=== PATIENT | female | born 1990 | race Caucasian/White ===

== ENCOUNTER 2017-11-25 15:28 | Emergency (ER) | payer MEDICAID, SELFPAY | END 2017-11-25 16:09 | disposition home or self-care (01) | PROVIDERS: Emergency Provider Nurse Practitioner Family; Visit Provider Nurse Practitioner Family | DX: J10.1 Influenza due to other identified influenza virus with other respiratory manifestations (principal); Z20.828 Contact with and (suspected) exposure to other viral communicable diseases; F17.210 Nicotine dependence, cigarettes, uncomplicated; Z88.2 Allergy status to sulfonamides | CPT/HCPCS: 87804; 87880; 99201 ==

== ENCOUNTER 2020-10-20 19:44 | Emergency (ER) | payer MEDICAID, SELFPAY ==
[2020-10-20 20:10] VITALS: BP 106/73; PULSE 77; RESP 20; TEMP 36.1; O2SAT 99; BMI 24.5
--- NOTE | 2020-10-20 20:27 | HMH.EDUTC ---
[facility] – [place] Disposition Clinical Impression: Exposure to COVID-19 virus Disposition: Home, Self-Care Condition on Discharge: Good Instructions: Preventing the Spread of Coronavirus Discharge Instructions Additional Instructions: Drink plenty of fluids. Take tylenol for pain or fever. Return if you begin to have difficulty breathing. Follow up with your regular doctor. GO TO THE ER FOR ANY WORSENING SYMPTOMS Referrals: Tommy Alexandre MD [Primary Care Provider] - Time of Disposition: 20:27 Medical Decision Making - Medical Records Medical records reviewed: No: I reviewed the patient's medical records. - Thomas Inquiry Pt receiving controlled substance: No Vital Signs: 10/20/20 20:10 Temperature 97.0 F L Temperature Source Oral Pulse Rate [Right Brachial] 77 Respiratory Rate 20 Blood Pressure [Right Arm] 106/73 L Blood Pressure Mean [Right Arm] 84 Blood Pressure Source [Right Arm] Automatic Cuff Blood Pressure Position [Right Arm] Sitting 02 Sat by Pulse Oximetry 99 Oxygen Delivery Method Room Air Orders (Tests/Meds): ORDERS Category Date Time Status Covid-19 Nasal PCR Sendout [place] [facility] 10/20/20 20:37 Ordered [facility] [place] HPI - General Stated complaint: COVID EXPOSURE Time Seen by Provider: 10/20/20 20:27 - History of Present Illness Provider Complaint: She was exposed to covid by her mother having it. She denies any symptoms. - Related Data Previous Rx's Medication Instructions Recorded norgestimate-ethinyl estradiol 1 tab PO DAILY #28 tab 06/09/19 0.18 mg/0.215mg/0.25mg-35 mcg(28)tablet Allergies Allergy/AdvReac Type Severity Reaction Status Date / Time Sulfa (Sulfonamide Allergy Unknown Verified 06/09/19 08:19 Antibiotics) [SULFA (SULFONAMIDE ANTIBIOTICS)] [facility] History - Hepatitis A Screen Attestation statement:: This patient has been screened for Hepatitis A risk factors. I have reviewed the patient's past medical history: Yes Other Medical History: Reports: Other Comment: Endometiriosis Other Surgeries: Yes: Hernia Repair, Other Amputation: No Fractures: No Comment: 1994-hernia repair. 2009-Kidney Stones/stint. 2014-LSC. 2015-D&E (twins) - Social History Smoking Status: Current every day smoker Tobacco Type: cigarettes # Packs/Day (cigarettes): 1 Alcohol Intake: never Substance Use Type: denies use Occupational Status: employed Housing: house Household Members: children Family Hx:: Cancer, Hypertension ROS Obtained: Yes All systems reviewed & no additional complaints - Constitutional Constitutional: Reports system reviewed and no additional complaints, except as docu - Eyes Eyes: Reports system reviewed and no additional complaints, except as docu - ENT Ears, Nose, Mouth, and Throat: Reports system reviewed and no additional complaints, except as docu - Cardiovascular Cardiovascular: Reports system reviewed and no additional complaints, except as docu - Respiratory Respiratory: Yes system reviewed and no additional complaints, except as docu - Gastrointestinal Gastrointestingal: Reports: system reviewed and no additional complaints, except as docu Physical Exam - General General appearance: alert, in no apparent distress - Head Head exam: atraumatic, normocephalic, normal inspection - Eye Eye exam: Present: normal appearance, PERRL, EOMI - ENT ENT exam: Present: normal exam, normal oropharynx, mucous membranes moist, TM's normal bilaterally, normal external ear exam - Neck Neck exam: Present: normal inspection, full ROM, trachea midline. Absent: meningismus, lymphadenopathy - Chest Chest inspection: Present: normal inspection, symmetric chest wall rise. Absent: tenderness - Respiratory Respiratory exam: Present: normal lung sounds bilaterally. Absent: respiratory distress - Cardiovascular Cardiovascular exam: Present: regular rate, normal rhythm. Absent: JVD - Abdominal Exam Abd
[2020-10-20 20:35] VITALS: BP 106/73; PULSE 77; RESP 20; TEMP 36.1; O2SAT 99
[2020-10-22 13:35] LABS: Covid-19 Nasal PCR Sendout Lex Not Detected
== END 2020-10-20 20:40 | disposition home or self-care (01) ==
PROVIDERS: Emergency Provider Nurse Practitioner Family; PCP Emergency Medicine
DX: Z20.828 Contact with and (suspected) exposure to other viral communicable diseases (principal); Z88.2 Allergy status to sulfonamides; F17.210 Nicotine dependence, cigarettes, uncomplicated
CPT/HCPCS: 99201; U0004

== ENCOUNTER 2021-01-31 13:10 | Emergency (ER) | payer MEDICAID, SELFPAY ==
[2021-01-31 13:20] VITALS: BP 121/77; PULSE 91; RESP 19; TEMP 36.8; O2SAT 98; BMI 25.4
--- NOTE | 2021-01-31 13:32 | HMH.EDUTC ---
[facility] [place] Clinical Impression: Nausea and vomiting Qualifiers: Vomiting type: unspecified Vomiting Intractability: non-intractable Qualified Code(s): R11.2 - Nausea with vomiting, unspecified Disposition: Home, Self-Care Condition on Discharge: Good Instructions: DI for Viral Gastroenteritis -- Adult Prescriptions: Ondansetron [Ondansetron Odt 8mg Tab] 8 mg PO TID PRN 10 Days #30 tab PRN Reason: Nausea Transmission Status: Pending to [facility] Referrals: Tommy Alexandre MD [Primary Care Provider] - Time of Disposition: 13:38 Medical Decision Making - Thomas Inquiry Pt receiving controlled substance: No [facility] [place] HPI - General Stated complaint: nausea, vomiting Time Seen by Provider: 01/31/21 13:32 - History of Present Illness Provider Complaint: Sent home from work yesterday with a fever. Had nausea, vomiting and diarrhea. Diarrhea has stopped. Still some nausea and vomiting. No fever. All kids had the same last week. Onset (ago): day(s) (1) Location: abdomen Relieving factors: none Exacerbating factors: none Associated symptoms: fever/chills, nausea/vomiting Treatments prior to arrival: none - Related Data Home Medications Medication Instructions Recorded Confirmed Sertraline HCl [Zoloft] 100 mg PO DAILY 01/31/21 01/31/21 Previous Rx's Medication Instructions Recorded Ondansetron [Ondansetron Odt 8mg 8 mg PO TID PRN 10 Days #30 tab 01/31/21 Tab] Allergies Allergy/AdvReac Type Severity Reaction Status Date / Time Sulfa (Sulfonamide Allergy Unknown Verified 06/09/19 08:19 Antibiotics) [SULFA (SULFONAMIDE ANTIBIOTICS)] [facility] History - Hepatitis A Screen Attestation statement:: This patient has been screened for Hepatitis A risk factors. I have reviewed the patient's past medical history: Yes Other Medical History: Reports: Other Comment: Endometiriosis Other Surgeries: Yes: Hernia Repair, Other Amputation: No Fractures: No Comment: 1994-hernia repair. 2009-Kidney Stones/stint. 2014-LSC. 2015-D&E (twins) - Social History Smoking Status: Current every day smoker Tobacco Type: cigarettes # Packs/Day (cigarettes): 1 Alcohol Intake: never Substance Use Type: denies use Occupational Status: other Housing: house Household Members: children Family Hx:: Cancer, Hypertension ROS Obtained: Yes All systems reviewed & no additional complaints - Constitutional Constitutional: Reports fever(s) - Gastrointestinal Gastrointestingal: Reports: loose stools, nausea, vomiting Physical Exam - General General appearance: alert, in no apparent distress - Head Head exam: atraumatic, normocephalic, normal inspection - Eye Eye exam: Present: normal appearance, PERRL, EOMI - ENT ENT exam: Present: normal exam, normal oropharynx, mucous membranes moist, TM's normal bilaterally, normal external ear exam - Neck Neck exam: Present: normal inspection, full ROM, trachea midline. Absent: meningismus, lymphadenopathy - Chest Chest inspection: Present: normal inspection, symmetric chest wall rise. Absent: tenderness - Respiratory Respiratory exam: Present: normal lung sounds bilaterally. Absent: respiratory distress - Cardiovascular Cardiovascular exam: Present: regular rate, normal rhythm. Absent: JVD - Abdominal Exam Abdominal exam: Present: soft, normal bowel sounds. Absent: distention, tenderness, guarding - Extremities Exam Extremities exam: Present: normal inspection, full ROM, normal capillary refill. Absent: calf tenderness - Back Exam Back exam: Present: normal inspection. Absent: tenderness - Neurological Exam Neurological exam: Present: alert, oriented X3 - Psychiatric Psychiatric exam: Present: normal affect, normal mood - Skin Skin exam: Present: warm, dry, intact, normal color - Lymphatic Lymphatic Findings: no adenopathy
[2021-01-31 13:48] VITALS: BP 121/77; PULSE 91; RESP 19; TEMP 36.8; O2SAT 98
== END 2021-01-31 13:50 | disposition home or self-care (01) ==
PROVIDERS: Emergency Provider Physician Assistant; PCP Emergency Medicine
DX: R11.2 Nausea with vomiting, unspecified (principal); R19.7 Diarrhea, unspecified; F17.210 Nicotine dependence, cigarettes, uncomplicated; Z88.2 Allergy status to sulfonamides
CPT/HCPCS: 99202; G0463

== ENCOUNTER 2021-03-31 10:05 | Emergency (ER) | payer MEDICAID, SELFPAY ==
--- NOTE | 2021-03-31 10:47 | HMH.EDUTC ---
[facility] – [place] Disposition Clinical Impression: Exposure to COVID-19 virus Pharyngitis Qualifiers: Pharyngitis/tonsillitis etiology: unspecified etiology Qualified Code(s): J02.9 - Acute pharyngitis, unspecified Disposition: Home, Self-Care Condition on Discharge: Good Instructions: DI for Pharyngitis/Tonsillopharyngitis -- Adult, Preventing the Spread of Coronavirus Discharge Instructions Additional Instructions: Drink plenty of fluids. Take tylenol or ibuprofen for pain or fever. Take the medications as directed. Follow up with your regular doctor. GO TO THE ER FOR ANY WORSENING SYMPTOMS Prescriptions: Ondansetron [Zofran 4mg ODT] 4 mg PO Q8HP PRN #12 tab.rapdis PRN Reason: Nausea Transmission Status: Received by [facility] Azithromycin [Z-Magen 250mg Tab*] 250 mg PO UD DOSE PK #6 tab Transmission Status: Received by [facility] Referrals: Tommy Alexandre MD [Primary Care Provider] - Forms: Work/School Release Time of Disposition: 11:03 Medical Decision Making - Medical Records Medical records reviewed: No: I reviewed the patient's medical records. - Thomas Inquiry Pt receiving controlled substance: No Vital Signs: 03/31/21 11:01 03/31/21 11:06 Temperature 98.4 F 97.9 F Temperature Source Oral Pulse Rate 74 Pulse Rate [Right] 70 Respiratory Rate 18 18 Blood Pressure 103/69 L Blood Pressure [Right Arm] 96/66 L Blood Pressure Mean [Right Arm] 76 Blood Pressure Source [Right Arm] Automatic Cuff Blood Pressure Position [Right Arm] Sitting 02 Sat by Pulse Oximetry 98 - Lab Data Lab results reviewed: Yes: I reviewed the patient's lab results. Lab Results 03/31/21 11:05: Strep Scn Rapid Clinic Negative Orders (Tests/Meds): ORDERS Category Date Time Status Covid-19 Nasal PCR ([facility]) Routine Lab 03/31/21 11:24 Received Strep Screen Confirmation Stat Micro 03/31/21 11:05 Received [facility] [place] HPI - General Stated complaint: nausea, v/d, body ache Time Seen by Provider: 03/31/21 10:47 - History of Present Illness Provider Complaint: She states that for the past 2 days she has felt bad and had a sore throat. She started feeling nauseated this morning and she has vomited x1 since then. She has also had some diarrhea. - Related Data Home Medications Medication Instructions Recorded Confirmed Sertraline HCl [Zoloft] 100 mg PO DAILY 01/31/21 01/31/21 Previous Rx's Medication Instructions Recorded Ondansetron [Ondansetron Odt 8mg 8 mg PO TID PRN 10 Days #30 tab 01/31/21 Tab] Azithromycin [Z-Magen 250mg Tab*] 250 mg PO UD DOSE PK #6 tab 03/31/21 Ondansetron [Zofran 4mg ODT] 4 mg PO Q8HP PRN #12 tab.rapdis 03/31/21 Allergies Allergy/AdvReac Type Severity Reaction Status Date / Time Sulfa (Sulfonamide Allergy Unknown Verified 06/09/19 08:19 Antibiotics) [SULFA (SULFONAMIDE ANTIBIOTICS)] [facility] History - Hepatitis A Screen Attestation statement:: This patient has been screened for Hepatitis A risk factors. I have reviewed the patient's past medical history: Yes Other Medical History: Reports: Other Comment: Endometiriosis Other Surgeries: Yes: Hernia Repair, Other Amputation: No Fractures: No Comment: 1994-hernia repair. 2009-Kidney Stones/stint. 2014-LSC. 2015-D&E (twins) - Social History Smoking Status: Current every day smoker Tobacco Type: cigarettes # Packs/Day (cigarettes): 1 Alcohol Intake: never Substance Use Type: denies use Occupational Status: other Housing: house Household Members: children Family Hx:: Cancer, Hypertension ROS Obtained: Yes All systems reviewed & no additional complaints - Constitutional Constitutional: Reports chills, Denies fever(s), Reports poor appetite, Reports malaise - Eyes Eyes: Denies eye discharge - ENT Ears, Nose, Mouth, and Throat: Reports as per HPI - Cardiovascular Cardiovascular: Denies chest pain - Respiratory Respiratory: Reports a
[2021-03-31 11:01] VITALS: BP 96/66; PULSE 70; RESP 18; TEMP 36.9; O2SAT 98; BMI 24.9
[2021-03-31 11:06] VITALS: BP 103/69; PULSE 74; RESP 18; TEMP 36.6
[2021-03-31 11:06] LABS: UTC Strep Screen (Rapid) Negative (Negative)
== END 2021-03-31 11:24 | disposition home or self-care (01) ==
PROVIDERS: Emergency Provider Nurse Practitioner Family; PCP Emergency Medicine
DX: Z20.822 Contact with and (suspected) exposure to COVID-19 (principal); J02.9 Acute pharyngitis, unspecified; F17.210 Nicotine dependence, cigarettes, uncomplicated; Z88.2 Allergy status to sulfonamides
CPT/HCPCS: 87880; 99202; G0463; U0003

== ENCOUNTER 2021-10-13 11:44 | Emergency (ER) | payer MEDICAID, SELFPAY ==
[2021-10-13 12:28] VITALS: BP 117/63; PULSE 64; RESP 16; TEMP 36.8; O2SAT 99; BMI 24.0
[2021-10-13 12:46] LABS: UTC Strep Screen (Rapid) Positive (Negative)
--- NOTE | 2021-10-13 12:47 | HMH.EDUTC ---
[facility] – [place] Disposition Clinical Impression: Strep throat Disposition: Home, Self-Care Condition on Discharge: Good Instructions: DI for Strep Throat, Strep Throat Additional Instructions: *Monitor Temp, Over the counter Motrin or Tylenol as directed/as needed Tylenol every 4 hours and Motrin every 6 hours (as long as your family doctor has told you that you can take it) for fever or pain. and straight to ER if unable to lower temp less than 101.0 after medication given *Warm salt water gargles may help to soothe the throat *Throat Lozenges *Warm fluids like tea with honey may help to soothe the throat *Sleep elevated *Humidifier/Vaporizer *If you did not take Penicillin shot or was unable to, start taking antibiotic immediately and make sure that you take it for the FULL length of time although you should start to feel better in 24-48 hours *change toothbrush and toothpaste 24-48 hours after starting to take antibiotics so you do not reinfect yourself Monitor Temp. Tylenol and/or Ibuprofen as needed. ER if fever is no less than 101 despite alternating Tylenol and Ibuprofen * Encourage fluids, water, Gatorade, powerade, pedialyte if infant/toddler/or child *Cold fluids, popsicles and ice cream may feel good on his throat Follow up IMMEDIATELY for new or worsening symptoms or no Noticeable improvement over the next 48-72 hours. 911 for difficulty breathing or swallowing Prescriptions: cephALEXin [cephALEXin 500mg capsule*] 500 mg PO BID 10 Days #20 cap Transmission Status: Pending to [facility] Referrals: Tommy Alexandre MD [Primary Care Provider] - As needed Forms: Work/School Release Time of Disposition: 12:52 Medical Decision Making - Thomas Inquiry Pt receiving controlled substance: No Thomas was queried for this patient: No Vital Signs: 10/13/21 12:28 Temperature 98.3 F Temperature Source Oral Pulse Rate [Left] 64 Respiratory Rate 16 Blood Pressure [Right Arm] 117/63 Blood Pressure Mean [Right Arm] 81 02 Sat by Pulse Oximetry 99 - Lab Data Lab results reviewed: Yes: I reviewed the patient's lab results. Lab Results 10/13/21 12:30: Strep Scn Rapid Clinic Positive A [facility] [place] HPI - General Stated complaint: sore throat,abd pain Time Seen by Provider: 10/13/21 12:47 Mode of Arrival: Ambulatory Source of Information: Patient Limitations: No Limitations Description of Symptoms (Recalled from Triage Doc. by RN): pt c/o fever, sore throat, and stomach ache. x1 week. HEENT Symptoms (Recalled from RN notes): Yes (sore throat) Resp Symptoms (Recalled from RN notes): No Skin Symptoms (Recalled from RN notes): No MS Symptoms (Recalled from RN notes): No Functional Status (Recalled from RN notes): fever - History of Present Illness Provider Complaint: Patient states that she has been having stomache ache on and off and sore throat States that all her kids at home have had strep throat State that she thinks she may have it now too so she came in to get checked - Related Data Home Medications Medication Instructions Recorded Confirmed Sertraline HCl [Zoloft] 100 mg PO DAILY 01/31/21 01/31/21 Previous Rx's Medication Instructions Recorded Ondansetron [Ondansetron Odt 8mg 8 mg PO TID PRN 10 Days #30 tab 01/31/21 Tab] Azithromycin [Z-Magen 250mg Tab*] 250 mg PO UD DOSE PK #6 tab 03/31/21 Ondansetron [Zofran 4mg ODT] 4 mg PO Q8HP PRN #12 tab.rapdis 03/31/21 cephALEXin [cephALEXin 500mg 500 mg PO BID 10 Days #20 cap 10/13/21 capsule*] Allergies Allergy/AdvReac Type Severity Reaction Status Date / Time Sulfa (Sulfonamide Allergy Unknown Verified 06/09/19 08:19 Antibiotics) [SULFA (SULFONAMIDE ANTIBIOTICS)] - Worker's Comp Is this a Worker's Comp case?: No [facility] History - Hepatitis A Screen Drug use history?: No High risk sexual behaviors?: No History of sexually transmitted infection?: No Currently employed?: No Childcare worker?: No Do you
[2021-10-13 13:09] VITALS: BP 117/63; PULSE 64; RESP 16; TEMP 36.8
== END 2021-10-13 13:10 | disposition home or self-care (01) ==
PROVIDERS: Emergency Provider Nurse Practitioner; PCP Emergency Medicine
DX: J02.0 Streptococcal pharyngitis (principal); F17.210 Nicotine dependence, cigarettes, uncomplicated; Z88.2 Allergy status to sulfonamides
CPT/HCPCS: 87880; 99202; G0463

== ENCOUNTER 2021-12-08 11:39 | Emergency (ER) | payer MEDICAID, SELFPAY ==
[2021-12-08 12:05] VITALS: BP 123/77; PULSE 108; RESP 20; TEMP 36.8; O2SAT 97; BMI 24.0
--- NOTE | 2021-12-08 12:43 | HMH.EDUTC ---
[facility] [place] Clinical Impression: Viral syndrome Disposition: Home, Self-Care Condition on Discharge: Good Instructions: DI for Viral Syndrome, DI for COVID-19 (Suspected or Confirmed ), Preventing the Spread of Coronavirus Discharge Instructions Additional Instructions: Drink plenty of fluids. Take tylenol or ibuprofen for pain or fever. Take the medications as directed. Follow up with your regular doctor. GO TO THE ER FOR ANY WORSENING SYMPTOMS Quarantine until you know the results of your covid-19 test. If it is positive, the health department should call you and give you further instructions about your length of Quarantine and other things. Notify your school or workplace of your results and follow their instructions regarding return to work/school. Prescriptions: Brompheniramine/Pseudoephed/Dm [Bromfed Dm Cough Syrup] 5 ml PO Q6HP PRN #240 ml PRN Reason: Cough Transmission Status: Received by [facility] Ondansetron [Zofran 4mg ODT] 4 mg PO Q8HP PRN #20 tab PRN Reason: Nausea Transmission Status: Received by [facility] Referrals: Tommy Alexandre MD [Primary Care Provider] - Forms: Work/School Release Time of Disposition: 13:14 Medical Decision Making - Medical Records Medical records reviewed: No: I reviewed the patient's medical records. - Thomas Inquiry Pt receiving controlled substance: No Vital Signs: 12/08/21 12:05 12/08/21 13:19 Temperature 98.2 F 98.2 F Temperature Source Oral Pulse Rate 108 H Pulse Rate [Right Brachial] 108 H Respiratory Rate 20 20 Blood Pressure 123/77 Blood Pressure [Right Arm] 123/77 Blood Pressure Mean [Right Arm] 92 Blood Pressure Source [Right Arm] Automatic Cuff Blood Pressure Position [Right Arm] Sitting 02 Sat by Pulse Oximetry 97 - Lab Data Lab results reviewed: Yes: I reviewed the patient's lab results. Lab Results 12/08/21 12:47: Strep Scn Rapid Clinic Negative Orders (Tests/Meds): ORDERS Category Date Time Status Covid-19 Nasal PCR ([facility]) Routine Lab 12/08/21 12:47 Received Strep Screen Confirmation Stat Micro 12/08/21 12:47 Received [facility] HPI - General Stated complaint: cough, vomiting, h/a, congestion Time Seen by Provider: 12/08/21 12:43 Mode of Arrival: Ambulatory Source of Information: Patient Limitations: No Limitations Description of Symptoms (Recalled from Triage Doc. by RN): PATIENT C/O VOMITING, NAUSEA, COUGH, CONGESTION, AND DIARRHEA SINCE YESTERDAY HEENT Symptoms (Recalled from RN notes): No Resp Symptoms (Recalled from RN notes): Yes Skin Symptoms (Recalled from RN notes): No MS Symptoms (Recalled from RN notes): No Functional Status (Recalled from RN notes): WNL - History of Present Illness Provider Complaint: She c/o cough, chest congestion, n/v/d and feeling bad for the past 2 days. She has not been vaccinated against covid-19. She works at a intermediate. - Related Data Previous Rx's Medication Instructions Recorded Brompheniramine/Pseudoephed/Dm 5 ml PO Q6HP PRN #240 ml 12/08/21 [Bromfed Dm Cough Syrup] Ondansetron [Zofran 4mg ODT] 4 mg PO Q8HP PRN #20 tab 12/08/21 Allergies Allergy/AdvReac Type Severity Reaction Status Date / Time Sulfa (Sulfonamide Allergy Unknown Verified 06/09/19 08:19 Antibiotics) [SULFA (SULFONAMIDE ANTIBIOTICS)] - Worker's Comp Is this a Worker's Comp case?: No [facility] History - Hepatitis A Screen Drug use history?: No High risk sexual behaviors?: No History of sexually transmitted infection?: No Currently employed?: No Childcare worker?: No Do you have indoor plumbing?: Yes Do you have electricity?: Yes Attestation statement:: This patient has been screened for Hepatitis A risk factors. I have reviewed the patient's past medical history: Yes Other Medical History: Reports: Other Comment: Endometiriosis Other Surgeries: Yes: Hernia Repair, Other Amputation: No Fractures: No Co
[2021-12-08 13:14] LABS: UTC Strep Screen (Rapid) Negative (Negative)
[2021-12-08 13:19] VITALS: BP 123/77; PULSE 108; RESP 20; TEMP 36.8; O2SAT 97
[2021-12-09 19:02] LABS: UTC Influenza A Antigen Negative (Negative); UTC Influenza B Antigen Negative (Negative)
== END 2021-12-08 13:22 | disposition home or self-care (01) ==
PROVIDERS: Emergency Provider Nurse Practitioner Family; PCP Emergency Medicine
DX: B34.9 Viral infection, unspecified (principal); Z20.822 Contact with and (suspected) exposure to COVID-19; F17.210 Nicotine dependence, cigarettes, uncomplicated
CPT/HCPCS: 87804; 87880; 99203; C9803; G0463; U0003; U0005

== ENCOUNTER 2022-02-09 10:27 | Emergency (ER) | payer MEDICAID, SELFPAY ==
[2022-02-09 12:10] VITALS: BP 108/67; PULSE 76; RESP 21; TEMP 37.7; O2SAT 98; BMI 25.0
--- NOTE | 2022-02-09 12:20 | HMH.EDUTC ---
[facility] – [place] Disposition Clinical Impression: Viral syndrome Pharyngitis Qualifiers: Pharyngitis/tonsillitis etiology: unspecified etiology Qualified Code(s): J02.9 - Acute pharyngitis, unspecified Disposition: Home, Self-Care Condition on Discharge: Good Instructions: DI for Strep Throat, DI for COVID-19 (Suspected or Confirmed ), Preventing the Spread of Coronavirus Discharge Instructions Additional Instructions: Drink plenty of fluids. Take tylenol or ibuprofen for pain or fever. Take the medications as directed. Follow up with your regular doctor. GO TO THE ER FOR ANY WORSENING SYMPTOMS Quarantine until you know the results of your covid-19 test. Notify your school or workplace of your results and follow their instructions regarding return to work/school. Prescriptions: Brompheniramine/Pseudoephed/Dm [Bromfed Dm Cough Syrup] 5 ml PO Q6HP PRN #240 ml PRN Reason: Cough Transmission Status: Received by [facility] Ondansetron [Zofran 4mg ODT] 4 mg PO Q8HP PRN #20 tab PRN Reason: Nausea Transmission Status: Received by [facility] Amoxicillin [Amoxicillin 500mg Tab] 500 mg PO TID 10 Days #30 tab Transmission Status: Received by [facility] Referrals: Provider,Referral, MD [Primary Care Provider] - Forms: Work/School Release Time of Disposition: 13:10 Medical Decision Making - Medical Records Medical records reviewed: No: I reviewed the patient's medical records. - Thomas Inquiry Pt receiving controlled substance: No Vital Signs: 02/09/22 12:10 02/09/22 12:28 Temperature 99.9 F H 99.9 F H Temperature Source Oral Pulse Rate 76 Pulse Rate [Right Brachial] 76 Respiratory Rate 21 21 Blood Pressure 108/67 L Blood Pressure [Right Arm] 108/67 L Blood Pressure Mean [Right Arm] 80 Blood Pressure Source [Right Arm] Automatic Cuff Blood Pressure Position [Right Arm] Sitting 02 Sat by Pulse Oximetry 98 Oxygen Delivery Method Room Air - Lab Data Lab results reviewed: Yes: I reviewed the patient's lab results. Lab Results 02/09/22 12:20: Chlamy pneumoniae PCR Not detected, Adenovirus (PCR) Not detected, B. pertussis DNA (PCR) Not detected, Coronavirus OC43 (PCR) Not detected, Coronavirus HKU1 (PCR) Not detected, Coronavirus 229E (PCR) Not detected, SARS-CoV-2 (PCR) Not detected, Coronavirus NL63 (PCR) Not detected, Human Metapneumovir PCR Not detected, Influenza A (H1) PCR Not detected, Influ A (H1N1/09) PCR Not detected, Influenza A (H3) PCR Not detected, Influenza Type A (PCR) Not detected, Influenza Type B (PCR) Not detected, M. pneumoniae (PCR) Not detected, Parainfluenza 1 (PCR) Not detected, Parainfluenza 2 (PCR) Not detected, Parainfluenza 3 (PCR) Not detected, Parainfluenza 4 (PCR) Not detected, RSV (PCR) Not detected, Entero/Rhino (PCR) Not detected 02/09/22 12:24: Strep Scn Rapid Clinic Negative Orders (Tests/Meds): ORDERS Category Date Time Status Strep Screen Confirmation Stat Micro 02/09/22 12:24 Received [facility] [place] HPI - General Stated complaint: fever, vomiting, body aches, sore throat, h/a Time Seen by Provider: 02/09/22 12:21 - History of Present Illness Provider Complaint: She c/o sore throat, chills, low grade fever and malaise since yesterday. - Related Data Previous Rx's Medication Instructions Recorded Amoxicillin [Amoxicillin 500mg Tab] 500 mg PO TID 10 Days #30 tab 02/09/22 Brompheniramine/Pseudoephed/Dm 5 ml PO Q6HP PRN #240 ml 02/09/22 [Bromfed Dm Cough Syrup] Ondansetron [Zofran 4mg ODT] 4 mg PO Q8HP PRN #20 tab 02/09/22 Allergies Allergy/AdvReac Type Severity Reaction Status Date / Time Sulfa (Sulfonamide Allergy Unknown Verified 06/09/19 08:19 Antibiotics) [SULFA (SULFONAMIDE ANTIBIOTICS)] [facility] History - Hepatitis A Screen Attestation statement:: This patient has been screened for Hepatitis A risk factors. I have reviewed the patient's past medical history: Yes Ot
[2022-02-09 12:28] VITALS: BP 108/67; PULSE 76; RESP 21; TEMP 37.7; O2SAT 98
[2022-02-09 12:35] LABS: UTC Strep Screen (Rapid) Negative (Negative)
[2022-02-09 12:47] LABS: Adenovirus,PCR Not Detected (NotDetected); Bordetella Pertussis Not Detected (NotDetected); Chlamydophila Pneumoniae, PCR Not Detected (NotDetected); Coronavirus 19, PCR Not Detected (NotDetected); Coronavirus 229E Not Detected (NotDetected); Coronavirus NL63 Not Detected (NotDetected); Coronavirus OC43 Not Detected (NotDetected); Coronovirus HKU1,PCR Not Detected (NotDetected); Human Metapneumovirus Not Detected (NotDetected); Influenza A, PCR Not Detected (NotDetected); Influenza AH1, 2009 Not Detected (NotDetected); Influenza AH1, PCR Not Detected (NotDetected); Influenza AH3,PCR Not Detected (NotDetected); Influenza B, PCR Not Detected (NotDetected); Mycoplasma Pneumoniae, PCR Not Detected (NotDetected); Parainfluenza 1, PCR Not Detected (NotDetected); Parainfluenza 2, PCR Not Detected (NotDetected); Parainfluenza 3, PCR Not Detected (NotDetected); Parainfluenza 4, PCR Not Detected (NotDetected); Respiratory Syncytial Virus Not Detected (NotDetected); Rhinovirus/Enterovirus Not Detected (NotDetected)
== END 2022-02-09 13:14 | disposition home or self-care (01) ==
PROVIDERS: Emergency Provider Nurse Practitioner Family
DX: J02.9 Acute pharyngitis, unspecified (principal); B34.9 Viral infection, unspecified; F17.210 Nicotine dependence, cigarettes, uncomplicated; Z88.2 Allergy status to sulfonamides
CPT/HCPCS: 87581; 87632; 87798; 87880; 99213; C9803; G0463; U0003; U0005

== ENCOUNTER 2022-05-23 19:46 | Emergency (ER) | payer MEDICAID, SELFPAY ==
[2022-05-23 19:50] VITALS: BP 116/73; PULSE 91; RESP 19; TEMP 37; O2SAT 98; BMI 25.0
--- NOTE | 2022-05-23 19:54 | XR_ITS ---
PROCEDURE INFORMATION: Exam: XR Right Hip Exam date and time: 05/23/2022 8:07 PM Age: 31 years old Clinical indication: Hip pain; Right hip; Additional info: PT fell x 1 day ago, pain in RT hip w C/O numbness and tingling TECHNIQUE: Imaging protocol: Radiologic exam of the Right hip. Views: 2 or 3 views hip with pelvis when performed. COMPARISON: No relevant prior studies available. FINDINGS: Bones/joints: Unremarkable. No acute fracture. Soft tissues: Unremarkable. IMPRESSION: No acute findings.
--- NOTE | 2022-05-23 20:10 | HMH.EDUTC ---
[facility] [place]: Hip pain, left Disposition: Home, Self-Care Condition on Discharge: Good Instructions: DI for Hip Pain Additional Instructions: Weightbearing as tolerated rest Ice with cold pack for 20 minutes remove may repeat for comfort every hour Ibuprofen every 6 hours as needed for pain or inflammation. If needs something more you can take Tylenol every 4 hours as needed as long as her primary care has told he was okayed for you to take both. If improving any do not need to follow-up you can bring begin exercising 2-3 weeks after injury. Follow-up immediately if new or worsening symptoms or no noticeable improvement over the next 3-5 days. call ortho if no improvement Referrals: Provider,Referral, [Primary Care Provider] - Forms: Work/School Release Time of Disposition: 20:23 Medical Decision Making - Thomas Inquiry Pt receiving controlled substance: No Vital Signs: 05/23/22 19:50 05/23/22 20:19 Temperature 98.6 F 98.6 F Temperature Source Oral Pulse Rate 91 H Pulse Rate [Right Brachial] 91 H Respiratory Rate 19 19 Blood Pressure 116/73 Blood Pressure [Right Arm] 116/73 Blood Pressure Mean [Right Arm] 87 Blood Pressure Source [Right Arm] Automatic Cuff Blood Pressure Position [Right Arm] Sitting 02 Sat by Pulse Oximetry 98 Oxygen Delivery Method Room Air Orders (Tests/Meds): ORDERS Category Date Time Status XR hip RT 2-3V w/pelvis Stat Exams 05/23/22 19:54 [place] [facility] [place] General Chief complaint: Ur[facility] Stated complaint: hip pain ao 05/22/22 Time Seen by Provider: 05/23/22 20:10 Mode of Arrival: Ambulatory Source of Information: Patient Limitations: No Limitations Description of Symptoms (Recalled from Triage Doc. by RN): PATIENT STATES SHE FELL DOWN A HILL LAST NIGHT AND IS C/O RIGHT HIP PAIN HEENT Symptoms (Recalled from RN notes): No Resp Symptoms (Recalled from RN notes): No Skin Symptoms (Recalled from RN notes): No MS Symptoms (Recalled from RN notes): Yes Functional Status (Recalled from RN notes): WNL - History of Present Illness Provider Complaint: 31 yr old female presents for rt hip pain. pt states she fell last pm and now is having pain. - Related Data Previous Rx's Medication Instructions Recorded Amoxicillin [Amoxicillin 500mg Tab] 500 mg PO TID 10 Days #30 tab 02/09/22 Brompheniramine/Pseudoephed/Dm 5 ml PO Q6HP PRN #240 ml 02/09/22 [Bromfed Dm Cough Syrup] Ondansetron [Zofran 4mg ODT] 4 mg PO Q8HP PRN #20 tab 02/09/22 Allergies Allergy/AdvReac Type Severity Reaction Status Date / Time Sulfa (Sulfonamide Allergy Unknown Verified 06/09/19 08:19 Antibiotics) [SULFA (SULFONAMIDE ANTIBIOTICS)] - Worker's Comp Is this a Worker's Comp case?: No [facility] History - Hepatitis A Screen Attestation statement:: This patient has been screened for Hepatitis A risk factors. I have reviewed the patient's past medical history: Yes Other Medical History: Reports: Other Comment: Endometiriosis Other Surgeries: Yes: Hernia Repair, Other Amputation: No Fractures: No Comment: 1994-hernia repair. 2009-Kidney Stones/stint. 2014-LSC. 2014-D&E (twins) - Social History Smoking Status: Current every day smoker Tobacco Type: cigarettes # Packs/Day (cigarettes): 1 Alcohol Intake: never Substance Use Type: denies use Occupational Status: other Housing: house Household Members: children Family Hx:: Cancer, Hypertension ROS Obtained: Yes Systems reviewed as appropriate & no additional complaints - Constitutional Constitutional: Reports system reviewed and no additional complaints, except as docu, Denies fever(s) - Eyes Eyes: Reports system reviewed and no additional complaints, except as docu, Denies dry eyes - ENT Ears, Nose, Mouth, and Throat: Reports system reviewed and no additional complaints, except as docu, Denies sore throat - Cardiovascular Cardiovascular: Reports system
[2022-05-23 20:19] VITALS: BP 116/73; PULSE 91; RESP 19; TEMP 37; O2SAT 98
== END 2022-05-23 20:28 | disposition home or self-care (01) ==
PROVIDERS: Emergency Provider Nurse Practitioner Family
DX: M25.551 Pain in right hip (principal)
CPT/HCPCS: 73502; 99212; G0463

== ENCOUNTER 2022-11-17 18:01 | Emergency (ER) | payer MEDICAID, SELFPAY ==
[2022-11-17 18:20] VITALS: BP 114/64; PULSE 92; RESP 18; TEMP 36.6; O2SAT 99; BMI 25.0
[2022-11-17 18:30] VITALS: BP 114/64; PULSE 92; RESP 18; TEMP 36.7; O2SAT 99; BMI 25.0
[2022-11-17 18:56] LABS: UTC Influenza A Antigen Negative (Negative); UTC Influenza B Antigen Negative (Negative)
--- NOTE | 2022-11-17 19:00 | EXP.UTC ---
Discharge Plan Disposition Patient Disposition: Home, Self-Care Condition: Good Referrals Follow up/Referrals: Tommy Alexandre MD [Primary Care Provider] - See instructions Activity Restrictions/Add. Instructions Additional Instructions/Restrictions: *Monitor Temp, Over the counter Motrin or Tylenol as directed/as needed Tylenol every 4 hours and Motrin every 6 hours (as long as your family doctor has told you that you can take it) for fever or pain. and straight to ER if unable to lower temp less than 101.0 after medication given *Warm salt water gargles may help to soothe the throat *Throat Lozenges? *Warm fluids like tea with honey may help to soothe the throat? *Sleep elevated *Humidifier/Vaporizer Follow up IMMEDIATELY for new or worsening symptoms or no Noticeable improvement over the next 48-72 hours. 911 for difficulty breathing or swallowing You were tested for today for COVID19 your test result should be back in the next 24-48 hours, you may check your results on the [facility] Portal Clinical Impressions Clinical Impression: Viral syndrome Stand Alone Forms Stand Alone Forms: Work/School Release Instructions Patient Instructions: DI for Viral Syndrome, DI for Fever (Symptom) -- Adult Discharge ED Provider: Sarah Thompson [facility] General Stated complaint: cough, congestion, runny nose, sore throat Mode of Arrival: Ambulatory Source of Information: Patient Limitations: No Limitations Time Seen by Provider: 11/17/22 19:00 Description of Symptoms (Recalled from Triage Doc. by RN): PATIENT C/O FEVER, BODY ACHES, COUGH, CONGESTION AND SOA HEENT Symptoms (Recalled from RN notes): Yes Resp Symptoms (Recalled from RN notes): Yes Skin Symptoms (Recalled from RN notes): No MS Symptoms (Recalled from RN notes): No Functional Status (Recalled from RN notes): WNL History of Present Illness Provider Complaint: Patient states that she has been exposed to COVID, Flu, RSV and Rhino at work States that she has been having body aches, chills and fever since last night and felt like she couldnt breath out of her nose when she laid down Related Data Allergies Allergy/AdvReac Type Severity Reaction Status Date / Time Sulfa (Sulfonamide Allergy Unknown Verified 06/09/19 08:19 Antibiotics) [SULFA (SULFONAMIDE ANTIBIOTICS)] Worker's Comp Is this a Worker's Comp case?: No [facility] Disclaimer: The information contained in this section may have been updated after the patient was seen, as this information can be updated by other users. Medical History (Updated 11/17/22 @ 19:03 by Sarah Thompson APRN) Anxiety Depression Kidney stone Urinary tract infection Social History (Updated 11/17/22 @ 18:45 by Yessy Marie RN) Smoking Status: Current every day smoker tobacco type: cigarettes packs per day: 1 alcohol intake: never substance use type: denies use current occupational status: other Travel in the last 8 weeks: None household members: children housing: house ROS Obtained: Yes All systems reviewed & no additional complaints except as documented and Yes Systems reviewed as appropriate & no additional complaints except as documented Constitutional Constitutional: Reports system reviewed and no additional complaints, except as documented, Reports as per HPI, Reports body ache, Reports chills, Reports fever(s) and Reports headache(s) ENT Ears, Nose, Mouth, and Throat: Reports system reviewed and no additional complaints, except as documented, Reports as per HPI, Reports headache(s), Reports nasal congestion and Reports nasal discharge Cardiovascular Cardiovascular: Reports system reviewed and no additional complaints, except as documented and Reports as per HPI Respiratory Respiratory: Reports system reviewed and no additional complaints, except as documented, Reports as per HPI and Reports cough Neurologic Neurologic: Reports headache(s) Physical
[2022-11-17 19:01] VITALS: BP 114/64; PULSE 92; RESP 18; TEMP 36.7; O2SAT 99
== END 2022-11-17 19:38 | disposition home or self-care (01) ==
PROVIDERS: Emergency Provider Nurse Practitioner; PCP Emergency Medicine
DX: R05.9 Cough, unspecified (principal); R09.89 Other specified symptoms and signs involving the circulatory and respiratory systems; J02.9 Acute pharyngitis, unspecified; B34.9 Viral infection, unspecified
CPT/HCPCS: 87804; 99212; G0463

== ENCOUNTER 2023-03-12 18:15 | Emergency (ER) | payer MEDICAID, SELFPAY ==
[2023-03-12 18:30] VITALS: BP 129/86; PULSE 68; RESP 18; TEMP 36.9; O2SAT 98; BMI 27.4
--- NOTE | 2023-03-12 18:33 | XR_ITS ---
PROCEDURE INFORMATION: Exam: XR Left Foot Exam date and time: 03/12/2023 6:33 PM Age: 32 years old Clinical indication: Pain; Foot; Left; Additional info: Fell taking out her dogs pain lateral side of foot TECHNIQUE: Imaging protocol: Radiologic exam of the left foot. Views: 3 or more views. COMPARISON: No relevant prior studies available. FINDINGS: Bones/joints: Normal. Soft tissues: Normal. IMPRESSION: No acute findings.
--- NOTE | 2023-03-12 18:40 | EXP.UTC ---
Discharge Plan Disposition Patient Disposition: Home, Self-Care Condition: Good Referrals Follow up/Referrals: Provider,Referral, MD [Primary Care Provider] - See instructions Activity Restrictions/Add. Instructions Additional Instructions/Restrictions: *weight bearing as tolerated *RICE, Rest the extremity, Ice 15-20 minutes 3-4 times daily, Compress- wear the candido wrap as discussed as much as possible to help reduce swelling and pain, Elevate the extremity when at rest *Candido wrap is for support and help control swelling, use it except in the shower. Be sure that is not to tight but not to loose either *Elevate when resting? *Ibuprofen as directed on package every 6-8 hours as needed for pain an inflammation. If need something more can take Tylenol in between doses of Ibuprofen to help Immediately follow up with your family doctor for new or worsening of symptoms, or no noticeable improvement over the next 3-5 days Clinical Impressions Clinical Impression: Contusion of foot Stand Alone Forms Stand Alone Forms: Work/School Release Instructions Patient Instructions: Contusion, DI for Contusion, DI for Foot Pain Discharge ED Provider: Sarah Thompson [facility] [place] General Stated complaint: AO 1600 @home injured L Foot Time Seen by Provider: 03/12/23 18:41 History of Present Illness Provider Complaint: Patient states that she took her dogs out and they got wrapped around her and she tripped states there was some rocks holding down the tarp and she hit her left foot against the side of one of the rocks States that ever since she has been having pain on the bottom side of foot from her little toe back towards her ankle and has not been able to put her foot flat against the floor without pain so she came in Related Data Allergies Allergy/AdvReac Type Severity Reaction Status Date / Time Sulfa (Sulfonamide Allergy Unknown Verified 06/09/19 08:19 Antibiotics) [SULFA (SULFONAMIDE ANTIBIOTICS)] [facility] Disclaimer: The information contained in this section may have been updated after the patient was seen, as this information can be updated by other users. Medical History (Updated 03/12/23 @ 19:21 by Sarah Thompson APRN) Anxiety Depression Kidney stone Urinary tract infection Social History (Updated 11/17/22 @ 18:45 by Yessy Marie RN) Smoking Status: Current every day smoker tobacco type: cigarettes packs per day: 1 alcohol intake: never substance use type: denies use current occupational status: other Travel in the last 8 weeks: None household members: children housing: house ROS Obtained: Yes All systems reviewed & no additional complaints except as documented and Yes Systems reviewed as appropriate & no additional complaints except as documented Constitutional Constitutional: Reports system reviewed and no additional complaints, except as documented and Reports as per HPI ENT Ears, Nose, Mouth, and Throat: Reports system reviewed and no additional complaints, except as documented and Reports as per HPI Cardiovascular Cardiovascular: Reports system reviewed and no additional complaints, except as documented and Reports as per HPI Respiratory Respiratory: Reports system reviewed and no additional complaints, except as documented and Reports as per HPI Gastrointestinal Gastrointestingal: Reports system reviewed and no additional complaints, except as documented and as per HPI Musculoskeletal Musculoskeletal: Reports system reviewed and no additional complaints, except as documented and Reports as per HPI Comments: Pain in left foot Physical Exam General General appearance: alert and in no apparent distress Chest Chest inspection: Present normal inspection and symmetric chest wall rise Respiratory Respiratory exam: Present normal lung sounds bilaterally; Absent respiratory distress or wheezes Cardiovascular Cardiovascular exam: Present regular rate, normal rhythm a
[2023-03-12 18:51] VITALS: BP 129/86; PULSE 68; RESP 18; TEMP 36.9; O2SAT 98
== END 2023-03-12 18:55 | disposition home or self-care (01) ==
PROVIDERS: Emergency Provider Nurse Practitioner
DX: S90.32XA Contusion of left foot, initial encounter (principal); F17.210 Nicotine dependence, cigarettes, uncomplicated; W01.198A Fall on same level from slipping, tripping and stumbling with subsequent striking against other object, initial encounter
CPT/HCPCS: 29515; 73630; 99212; 99213; G0463

== ENCOUNTER 2023-07-16 15:34 | Emergency (ER) | payer MEDICAID, SELFPAY ==
[2023-07-16 15:50] VITALS: BP 110/76; PULSE 91; RESP 18; TEMP 37.2; O2SAT 100; BMI 26.9
[2023-07-16 16:14] LABS: UTC Strep Screen (Rapid) Positive (Negative)
--- NOTE | 2023-07-16 16:15 | EXP.UTC ---
Discharge Plan Disposition Patient Disposition: Home, Self-Care Condition: Good Prescriptions Prescriptions: New penicillin V potassium 500 mg tablet 500 mg PO BID Qty: 20 0RF Referrals Follow up/Referrals: Provider,Referral, MD [Primary Care Provider] - See instructions Activity Restrictions/Add. Instructions Additional Instructions/Restrictions: *Monitor Temp, Over the counter Motrin or Tylenol as directed/as needed Tylenol every 4 hours and Motrin every 6 hours (as long as your family doctor has told you that you can take it) for fever or pain. and straight to ER if unable to lower temp less than 101.0 after medication given *Warm salt water gargles may help to soothe the throat *Throat Lozenges? *Warm fluids like tea with honey may help to soothe the throat? *Sleep elevated *Humidifier/Vaporizer *If you did not take Penicillin shot or was unable to, start taking antibiotic immediately and make sure that you take it for the FULL length of time although you should start to feel better in 24-48 hours *change toothbrush and toothpaste 24-48 hours after starting to take antibiotics so you do not reinfect yourself Monitor Temp. Tylenol and/or Ibuprofen as needed. ER if fever is no less than 101 despite alternating Tylenol and Ibuprofen * Encourage fluids, water, Gatorade, powerade, pedialyte if infant/toddler/or child *Cold fluids, popsicles and ice cream may feel good on his throat Follow up IMMEDIATELY for new or worsening symptoms or no Noticeable improvement over the next 48-72 hours. 911 for difficulty breathing or swallowing Clinical Impressions Clinical Impression: Strep throat Instructions Patient Instructions: DI for Strep Throat, Strep Throat Discharge ED Provider: Sarah Thompson [facility] [place] H[place] General Stated complaint: sore throat, body aches fever Mode of Arrival: Ambulatory Source of Information: Patient Limitations: No Limitations Time Seen by Provider: 07/16/23 16:15 Description of Symptoms (Recalled from Triage Doc. by RN): PATIENT C/O SORE THROAT, BODY ACHES AND FEVER X 2 DAYS HEENT Symptoms (Recalled from RN notes): Yes Resp Symptoms (Recalled from RN notes): No Skin Symptoms (Recalled from RN notes): No MS Symptoms (Recalled from RN notes): No Functional Status (Recalled from RN notes): WNL History of Present Illness Provider Complaint: Patient states that she has been having fever, headache and feeling achy for the last couple of days States that today her sore throat was worse and felt like it was burning/hurting when she would swallow Related Data Previous Rx's Medication Instructions Recorded penicillin V potassium 500 mg 500 mg PO BID #20 tabs 07/16/23 tablet Allergies Allergy/AdvReac Type Severity Reaction Status Date / Time Sulfa (Sulfonamide Allergy Unknown Verified 06/09/19 08:19 Antibiotics) [SULFA (SULFONAMIDE ANTIBIOTICS)] Worker's Comp Is this a Worker's Comp case?: No [facility] Disclaimer: The information contained in this section may have been updated after the patient was seen, as this information can be updated by other users. Medical History (Updated 07/16/23 @ 16:21 by Sarah Thompson APRN) Anxiety Depression Kidney stone Urinary tract infection Social History (Updated 11/17/22 @ 18:45 by Yessy Marie RN) Smoking Status: Current every day smoker tobacco type: cigarettes packs per day: 1 alcohol intake: never substance use type: denies use current occupational status: other Travel in the last 8 weeks: None household members: children housing: house ROS Obtained: Yes All systems reviewed & no additional complaints except as documented and Yes Systems reviewed as appropriate & no additional complaints except as documented Constitutional Constitutional: Reports system reviewed and no additional complaints, except as documented, Reports as per HPI, Reports body
[2023-07-16 16:25] VITALS: BP 110/76; PULSE 91; RESP 18; TEMP 37.2; O2SAT 100
== END 2023-07-16 16:27 | disposition home or self-care (01) ==
PROVIDERS: Emergency Provider Nurse Practitioner
DX: J02.0 Streptococcal pharyngitis (principal); R50.9 Fever, unspecified; R51.9 Headache, unspecified; F17.210 Nicotine dependence, cigarettes, uncomplicated; F41.9 Anxiety disorder, unspecified; F32.A Depression, unspecified
CPT/HCPCS: 87880; 99212; 99214; G0463

== ENCOUNTER 2023-11-18 12:12 | Emergency (ER) | payer MEDICAID, SELFPAY ==
[2023-11-18 12:30] VITALS: BP 108/83; PULSE 88; RESP 20; TEMP 36.7; O2SAT 97; BMI 26.7
--- NOTE | 2023-11-18 12:45 | EXP.UTC ---
Discharge Plan Disposition Patient Disposition: Home, Self-Care Condition: Good Prescriptions Prescriptions: New amoxicillin [amoxicillin] 500 mg tablet 500 mg PO TID 10 Days Qty: 30 0RF [id number] [Bromfed DM] 2-30-10 mg/5 mL Syrup 5 ml PO Q6H PRN (Reason: Cough) Qty: 240 0RF Referrals Follow up/Referrals: Provider,Referral, MD [Primary Care Provider] - See instructions Activity Restrictions/Add. Instructions Additional Instructions/Restrictions: Drink plenty of fluids. Take tylenol or ibuprofen for pain or fever. Take the medications as directed. Follow up with your regular doctor. GO TO THE ER FOR ANY WORSENING SYMPTOMS Clinical Impressions Clinical Impression: Strep throat Stand Alone Forms Stand Alone Forms: Work/School Release Instructions Patient Instructions: Strep Throat, DI for Strep Throat Discharge ED Provider: Ankur Juarez [facility] General Stated complaint: cough, congestion, Sore throat, Time Seen by Provider: 11/18/23 12:45 History of Present Illness Provider Complaint: She states that for the past 2 days she has had sore throat, chills, body aches and low grade fever. Related Data Previous Rx's Medication Instructions Recorded amoxicillin 500 mg tablet 500 mg PO TID 10 days #30 tabs 11/18/23 [id number] 5 ml PO Q6H PRN Cough #240 mL 11/18/23 2 mg-30 mg-10 mg/5 mL oral syrup (Bromfed DM) Allergies Allergy/AdvReac Type Severity Reaction Status Date / Time Sulfa (Sulfonamide Allergy Unknown Verified 06/09/19 08:19 Antibiotics) [SULFA (SULFONAMIDE ANTIBIOTICS)] [facility] Disclaimer: The information contained in this section may have been updated after the patient was seen, as this information can be updated by other users. Medical History (Updated 11/18/23 @ 13:07 by Ankur Juarez APRN) Anxiety Depression Kidney stone Urinary tract infection Social History (Updated 11/17/22 @ 18:45 by Yessy Marie RN) Smoking Status: Current every day smoker tobacco type: cigarettes packs per day: 1 alcohol intake: never substance use type: denies use current occupational status: other Travel in the last 8 weeks: None household members: children housing: house ROS Obtained: Yes All systems reviewed & no additional complaints except as documented Constitutional Constitutional: Reports chills and Reports fever(s) Eyes Eyes: Denies eye discharge ENT Ears, Nose, Mouth, and Throat: Reports as per HPI Cardiovascular Cardiovascular: Denies chest pain Respiratory Respiratory: Denies chest congestion and Reports cough Gastrointestinal Gastrointestingal: Reports nausea; Denies abdominal pain, constipation, cramping, diarrhea or vomiting Musculoskeletal Musculoskeletal: Denies arthralgias Integumentary/Breasts Skin/Breast: Denies rash Neurologic Neurologic: Denies paresthesias Physical Exam General General appearance: alert and in no apparent distress Head Head exam: atraumatic, normocephalic and normal inspection Eye Eye exam: Present normal appearance, PERRL and EOMI ENT ENT exam: Present mucous membranes moist and normal external ear exam Expanded ENT Exam TM/Canal exam: Bilateral TM: erythema and bulging Nose exam: Absent sinus tenderness Mouth exam: Present normal external inspection; Absent drooling Teeth exam: Present normal inspection Throat exam: Present tonsillar erythema, tonsillomegaly and tonsillar exudate Neck Neck exam: Present normal inspection, full ROM and trachea midline; Absent tenderness, meningismus or lymphadenopathy Chest Chest inspection: Present normal inspection and symmetric chest wall rise; Absent tenderness Respiratory Respiratory exam: Present normal lung sounds bilaterally; Absent respiratory distress, wheezes or stridor Cardiovascular Cardiovascular exam: Present regular rate and normal rhythm; Absent systolic murmur or diastolic murmur Abdo
[2023-11-18 12:50] LABS: UTC Strep Screen (Rapid) Positive (Negative)
[2023-11-18 12:53] VITALS: BP 108/83; PULSE 88; RESP 20; TEMP 36.7; O2SAT 97
== END 2023-11-18 13:14 | disposition home or self-care (01) ==
PROVIDERS: Emergency Provider Nurse Practitioner Family
DX: J02.0 Streptococcal pharyngitis (principal); R07.0 Pain in throat; R05.9 Cough, unspecified; R50.9 Fever, unspecified; R09.81 Nasal congestion; M79.18 Myalgia, other site; F17.210 Nicotine dependence, cigarettes, uncomplicated
CPT/HCPCS: 87880; 99212; 99214; G0463

== ENCOUNTER 2024-01-08 18:21 | Emergency (ER) | payer OTHER, SELFPAY ==
[2024-01-08 19:05] VITALS: BP 123/80; PULSE 60; RESP 18; TEMP 36.9; O2SAT 98; BMI 26.4
--- NOTE | 2024-01-08 19:08 | ED_ITS ---
Discharge Plan Disposition Patient Disposition: Home, Self-Care Condition: Good Prescriptions Prescriptions: New amoxicillin [amoxicillin] 875 mg tablet 875 mg PO Q12H Qty: 20 0RF benzonatate [benzonatate] 100 mg capsule 100 mg PO TIDP PRN (Reason: Cough) Qty: 30 0RF ondansetron 4 mg Tablet,Disintegrating 4 mg PO Q8H PRN (Reason: Nausea) Qty: 12 0RF Referrals Follow up/Referrals: Provider,Referral, MD [Primary Care Provider] - See instructions Activity Restrictions/Add. Instructions Additional Instructions/Restrictions: Drink plenty of fluids. Take tylenol or ibuprofen for pain or fever. Take the medications as directed. Follow up with your regular doctor. GO TO THE ER FOR ANY WORSENING SYMPTOMS Clinical Impressions Clinical Impression: Bronchitis, Acute viral syndrome Stand Alone Forms Stand Alone Forms: Work/School Release Instructions Patient Instructions: Acute Bronchitis, DI for Acute Bronchitis Discharge ED Provider: Ankur Juarez [facility] General Stated complaint: cough, nausea, vomiting Time Seen by Provider: 01/08/24 19:07 History of Present Illness Provider Complaint: She states that for the past 5 days she has had cough, chest congestion, chills, and malaise. Related Data Previous Rx's Medication Instructions Recorded amoxicillin 875 mg tablet 875 mg PO Q12H #20 tabs 01/08/24 benzonatate 100 mg capsule 100 mg PO TIDP PRN Cough #30 caps 01/08/24 ondansetron 4 mg disintegrating 4 mg PO Q8H PRN Nausea #12 tabs 01/08/24 tablet Allergies Allergy/AdvReac Type Severity Reaction Status Date / Time Sulfa (Sulfonamide Allergy Unknown Verified 01/08/24 19:23 Antibiotics) [SULFA (SULFONAMIDE ANTIBIOTICS)] [facility] Disclaimer: The information contained in this section may have been updated after the patient was seen, as this information can be updated by other users. Medical History (Updated 01/08/24 @ 19:47 by Ankur Juarez APRN) Anxiety Depression Kidney stone Urinary tract infection Social History Smoking Status: Current every day smoker tobacco type: cigarettes packs per day: 1 alcohol intake: never substance use type: denies use current occupational status: other Travel in the last 8 weeks: None household members: children housing: house ROS Obtained: Yes All systems reviewed & no additional complaints except as documented Constitutional Constitutional: Reports poor appetite Eyes Eyes: Reports system reviewed and no additional complaints, except as documented ENT Ears, Nose, Mouth, and Throat: Reports as per HPI Cardiovascular Cardiovascular: Reports system reviewed and no additional complaints, except as documented and Denies chest pain Respiratory Respiratory: Denies shortness of breath, Reports chest congestion, Reports cough, Denies stridor and Denies wheezing Gastrointestinal Gastrointestingal: Reports system reviewed and no additional complaints, except as documented; Denies abdominal pain, diarrhea or vomiting Musculoskeletal Musculoskeletal: Reports system reviewed and no additional complaints, except as documented and Denies arthralgias Integumentary/Breasts Skin/Breast: Reports system reviewed and no additional complaints, except as documented and Denies rash Neurologic Neurologic: Denies paresthesias Allergic/Immunologic Allergic/Immunologic: Denies wheezing Physical Exam General General appearance: alert and in no apparent distress Head Head exam: atraumatic, normocephalic and normal inspection Eye Eye exam: Present normal appearance, PERRL and EOMI ENT ENT exam: Present mucous membranes moist and normal external ear exam Expanded ENT Exam TM/Canal exam: Bilateral TM: erythema and bulging Nose exam: Absent sinus tenderness Mouth exam: Present normal external inspection; Absent drooling Teeth exam: Present normal inspection Throat exam: Present tonsillar erythema, tonsillomegaly and tonsillar exudate Neck Neck exam: Present normal inspection, full ROM and trachea midline; Absent tenderness, meningismus or lymphadenopathy Chest Chest inspection: Present normal inspection and symmetric chest wall rise; Absent tenderness Respiratory Respiratory exam: Present normal lung sounds bilaterally; Absent respiratory distress, wheezes or stridor Cardiovascular Cardiovascular exam: Present regular rate and normal rhythm; Absent systolic murmur or diastolic murmur Abdominal Exam Abdominal exam: Present soft and normal bowel sounds; Absent distention, tenderness, guarding, rebound or rigidity Extremities Exam Extremities exam: Present normal inspection and normal capillary refill; Absent calf tenderness Back Exam Back exam: Present normal inspection and full ROM; Absent tenderness, CVA tenderness (R) or CVA tenderness (L) Neurological Exam Neurological exam: Present alert, oriented X3 and CN II-XII intact Psychiatric Psychiatric exam: Present normal affect and normal mood Skin Skin exam: Present warm, dry, intact and normal color Medical Decision Making Medical Records Medical records reviewed: No I reviewed the patient's medical records. Thomas Inquiry Pt receiving controlled substance: No Lab Data Lab results reviewed: Yes I reviewed the patient's lab results.
[2024-01-08 19:38] VITALS: BP 123/80; PULSE 60; RESP 18; TEMP 36.9; O2SAT 98
[2024-01-08 19:49] LABS: UTC Influenza A Antigen Negative (Negative); UTC Influenza B Antigen Negative (Negative); UTC Strep Screen (Rapid) Negative (Negative)
== END 2024-01-08 19:53 | disposition home or self-care (01) ==
PROVIDERS: Emergency Provider Nurse Practitioner Family
DX: J20.9 Acute bronchitis, unspecified (principal); R05.9 Cough, unspecified; R09.89 Other specified symptoms and signs involving the circulatory and respiratory systems; R11.0 Nausea; B34.9 Viral infection, unspecified; F17.210 Nicotine dependence, cigarettes, uncomplicated
CPT/HCPCS: 87804; 87880; 99212; 99214; G0463

== ENCOUNTER 2025-03-05 08:47 | Emergency (ER) | payer OTHER, SELFPAY ==
[2025-03-05 08:53] VITALS: BP 108/70; PULSE 64; RESP 17; TEMP 36.8; O2SAT 97; BMI 24.9
--- NOTE | 2025-03-05 08:57 | XR_ITS ---
FINAL REPORT CLINICAL HISTORY: pain and swelling 3rd, 4th and 5th metacarpalain after breaking up dog fight COMPARISON: None FINDINGS: RIGHT WRIST Three views demonstrate no acute fracture or dislocation. The visualized joint spaces are normally aligned. The soft tissues are unremarkable. IMPRESSION: No acute bony abnormality. Reviewed, Interpreted and Dictated by Lazaro Guzman MD Transcribed by Deanna Le Authenticated and [facility]
--- NOTE | 2025-03-05 08:57 | XR_ITS ---
FINAL REPORT CLINICAL HISTORY: pain after breaking up dog fight pain and swelling 3rd, 4th and 5th metacarpal COMPARISON: None FINDINGS: RIGHT HAND Three views demonstrate a mildly displaced distal fourth metacarpal fracture. There is no definite intra-articular extension. The visualized joint spaces are normally aligned. The soft tissues are unremarkable. IMPRESSION: Fourth metacarpal fracture as above. Reviewed, Interpreted and Dictated by Lazaro Guzman MD Transcribed by Deanna Le Authenticated and . [facility]
[2025-03-05] MEDS: ACETAMINOPHEN 500MG TAB 1000 MG PO (10:01)
[2025-03-05] MEDS: IBUPROFEN 400 MG TABLET 800 MG PO (10:01)
[2025-03-05 10:20] VITALS: BP 108/71; PULSE 69; RESP 16; O2SAT 100
[2025-03-05 11:00] VITALS: BP 112/65; PULSE 65; RESP 16; TEMP 36.7; O2SAT 99
--- NOTE | 2025-03-05 11:47 | HMH.EDGENADL ---
Discharge Plan Disposition Patient Disposition: Home, Self-Care Condition: Good Prescriptions Prescriptions: New hydrocodone-acetaminophen 5-325 mg tablet 1 tab PO Q8H PRN (Reason: pain) Qty: 12 0RF No Action ondansetron 8 mg tablet,disintegrating 8 mg PO Q8H PRN (Reason: nausea and vomiting) Qty: 10 0RF Referrals Follow up/Referrals: Brayden Eagle DO [Staff Physician] - See instructions Provider,Referral, [Primary Care Provider] - See instructions Activity Restrictions/Add. Instructions Additional Instructions/Restrictions: You were evaluated in the emergency department today. Please mixing picker tender your physician for pain medication and take as needed for severe pain. Alternatively, you may take Tylenol and ibuprofen. Hydrocodone/acetaminophen is a controlled substance which is addicting and sedating. Do not drive or operate heavy machinery while taking this medication. It contains Tylenol, so do not take extra Tylenol with it. Follow-up closely with orthopedics. Call their office to schedule an appointment. Return to the emergency department for new or worsening symptoms. Clinical Impressions Clinical Impression: Fracture of fourth metacarpal bone Stand Alone Forms Stand Alone Forms: Work/School Release Instructions Patient Instructions: DI for a Hand Fracture Print Language Print Language: Cambodian Discharge ED Provider: Philly Chery General Adult HPI General Chief complaint: Extremity Injury, Upper Stated complaint: AO 0800. R Hand/Wrist Pain Time Seen by Provider: 03/05/25 09:41 Mode of Arrival: Ambulatory Source of Information: Patient Description of Symptoms (Recalled from ER Triage Doc. by RN): pt to the ED after breaking up a dog fight this morning. pt denies being bit or scratched but reports she hit her right wrist during the fight and has pain and swelling to her writst and ring and pinky finger. positive PMS to effected extremity History of Present Illness HPI narrative: This patient is a 34-year-old female with history of depression/anxiety presenting to the emergency department for evaluation of concern for right hand injury. Patient states she has 2 large mixed breed dogs at home that were fighting, and when she tried to break up the fight she hurt her right hand. She did not suffer any open wounds as a result of this. No numbness, tingling, or other concerns. She was well prior to this. Her pain is worse at the knuckle of her right ring finger Related Data Previous Rx's ?Medication ?Instructions ?Recorded ondansetron 8 mg disintegrating 8 mg PO Q8H PRN nausea and 02/03/25 tablet vomiting #10 tabs hydrocodone 5 mg-acetaminophen 325 1 tab PO Q8H PRN pain #12 tabs 03/05/25 mg tablet Allergies Allergy/AdvReac Type Severity Reaction Status Date / Time Sulfa (Sulfonamide Allergy Unknown Verified 02/03/25 17:17 Antibiotics) (SULFA (SULFONAMIDE ANTIBIOTICS)) [facility] Disclaimer: The information contained in this section may have been updated after the patient was seen, as this information can be updated by other users. Medical History Depression Anxiety Urinary tract infection Kidney stone Surgical History History of hysterectomy Social History Smoking Status: Current every day smoker tobacco type: cigarettes packs per day: 1 alcohol intake: never substance use type: denies use current occupational status: other Travel in the last 8 weeks: None household members: children housing: house Have you lived/traveled outside US in past 30 days?: No Contact w/someone who lives/traveled outside US past 30 days?: No Exposure to someone with infectious disease in past 14 days?: No Do you have a fever (greater than 100.4 F or 38 C)?: No Have you tested positive for COVID-19: No Exposed to someone with COVID-19 in past 14 days?: No Do you have a sore throat?: No Do you have a cough?: No Do you have any weakness?: No Do you have any diarrhea?: No Are you experiencing any unusual bleeding?: No Do you have any muscle aches/pain?: No Do you have any abdominal pain?: No Are you experiencing loss of taste or smell?: No Other Medical History Have you received the Pneumonia Vaccine: No ROS Obtained: Yes All systems reviewed & no additional complaints except as documented Physical Exam General General appearance: alert and in no apparent distress Head Head exam: atraumatic and normocephalic Eye Eye exam: Present normal appearance, PERRL and EOMI ENT ENT exam: Present normal exam, normal oropharynx, mucous membranes moist and normal external ear exam Neck Neck exam: Present normal inspection, full ROM and trachea midline; Absent tenderness Chest Chest inspection: Present normal inspection and symmetric chest wall rise; Absent tenderness Respiratory Respiratory exam: Present normal lung sounds bilaterally; Absent respiratory distress, wheezes, stridor or accessory muscle use Cardiovascular Cardiovascular exam: Present regular rate and normal rhythm Abdominal Exam Abdominal exam: Present soft; Absent distention, tenderness or guarding Extremities Exam Extremities exam: Present tenderness (TTP and bruising of 4th MCP on R) and normal capillary refill; Absent full ROM (limited ROM of R ring finger 2/2 pain) Back Exam Back exam: Present normal inspection and full ROM; Absent tenderness Neurological Exam Neurological exam: Present alert, oriented X3, CN II-XII intact and normal gait; Absent motor sensory deficit Psychiatric Psychiatric exam: Present normal affect and normal mood Skin Skin exam: Present warm and dry Medical Decision Making Medical Records Medical records reviewed: Yes I reviewed the patient's medical records. Screening: Per USPSTF and CDC recommendations, given the prevalence of disease in our region, it is our hospital?s policy to screen for HIV and viral Hepatitis for all patients aged 18 and over and those with ongoing risk factors. Thomas Inquiry Pt receiving controlled substance: Yes Thomas was queried for this patient: Yes Risks and benefits of using a controlled substance: were discussed with pt by me Vital Signs: 03/05/25 08:53 03/05/25 10:20 03/05/25 11:00 Temperature 98.3 F 98.0 F Temperature Source Oral Pulse Rate 69 65 Pulse Rate [Left Radial] 64 Respiratory Rate 17 16 16 Blood Pressure 108/71 L 112/65 Blood Pressure [Right Arm] 108/70 L Blood Pressure Mean [Right Arm] 82 Blood Pressure Source Manual Cuff/ Auscultation Automatic Cuff Blood Pressure Source [Right Arm] Automatic Cuff Blood Pressure Position Sitting Blood Pressure Position [Right Arm] Sitting 02 Sat by Pulse Oximetry 97 100 Oxygen Delivery Method Room Air Room Air Room Air Lab Data Lab results reviewed: Yes I reviewed the patient's lab results. Orders (Tests/Meds): ED MEDICATIONS Discontinued Medications Generic Name Dose Route Start Last Admin Trade Name Freq PRN Reason Stop Dose Admin Acetaminophen 1,000 mg 03/05/25 09:55 03/05/25 10:01 Acetaminophen 500mg Tab PO 04/07/25 09:56 1,000 mg ONCE ONE Administration Ibuprofen 800 mg 03/05/25 09:55 03/05/25 10:01 Ibuprofen 400 Mg Tablet PO 03/05/25 09:56 800 mg ONCE ONE Administration ORDERS Category Date Time Status XR hand RT min 3V Stat Exams 03/05/25 08:57 Completed XR wrist RT min 3V Stat Exams 03/05/25 08:57 Completed Medical Decision Narrative: In summary, this patient is a 34-year-old female presenting to the Emergency Department for evaluation of right hand injury after breaking up a dog fight. Differential diagnoses considered include but are not limited to fracture, contusion, strain/brain, dislocation. Ruling out the most morbid conditions drove assessment. On exam, the patient has tenderness to palpation and bruising at the right fourth MCP joint. She is neurovascularly intact. She is limited range of motion secondary to pain. Workup included x-rays of the right wrist and hand. I independently interpreted today prior to the radiologist read and noted right fourth metacarpal fracture. Please see their read for final interpretation. Patient was given oral Tylenol and ibuprofen for pain. Ultimately, patient has right fourth metacarpal fracture, for which I feel she would benefit from an ulnar gutter splint. We called over to orthopedics to see if they have removable splints for convenience of the patient, and they recommended putting the opposite side thumb spica splint on as an ulnar gutter splint, which was done. The patient tolerated this well and remained neurovascularly intact after splinting. I did offer to put a Ortho-Glass splint on here instead if she felt that the splint was uncomfortable, but she states that she is fine with this and we will plan to use this until orthopedics follow-up. Given this, I feel patient is appropriate for discharge home with ulnar gutter splint in place and close follow-up with orthopedics. She was given prescription for Mcgehee to have as needed for severe breakthrough pain. Strict return precautions were given and she was discharged after all questions were answered Procedures Risk/Benefits of Procedure(s) Were Explained: Yes Orthopedic Splinting/Casting Injury #1: Side: right Upper Extremity Injury Location: hand Upper Extremity Immobilizer: ulnar gutter Additional Comments: prefabricated splint Post Cast/Splinting Neuro Status: intact and no change Post Cast/Splinting Vasc Status: intact and no change Critical Care Critical Care Time Critical Care Time: No
== END 2025-03-05 11:00 | disposition home or self-care (01) ==
PROVIDERS: Emergency Provider Emergency Medicine
DX: S62.304A Unspecified fracture of fourth metacarpal bone, right hand, initial encounter for closed fracture (principal); M25.531 Pain in right wrist; M79.644 Pain in right finger(s); F17.210 Nicotine dependence, cigarettes, uncomplicated; X58.XXXA Exposure to other specified factors, initial encounter; Y93.89 Activity, other specified; Y92.9 Unspecified place or not applicable
CPT/HCPCS: 73110; 73130; 99283

== ENCOUNTER 2025-03-29 09:27 | Outpatient (CLI) | payer OTHER, SELFPAY ==
--- NOTE | 2025-03-29 09:30 | XR_ITS ---
FINAL REPORT CLINICAL HISTORY: Right hand pain COMPARISON: None FINDINGS: RIGHT HAND Three views demonstrate no acute fracture or dislocation. The visualized joint spaces are normally aligned. The soft tissues are unremarkable. IMPRESSION: No acute bony abnormality. Reviewed, Interpreted and Dictated by Lazaro Guzman MD Transcribed by Leola Arboleda Authenticated and . [facility]
== END 2025-03-29 23:59 | disposition home or self-care (01) ==
LOC: RAD 09:29
PROVIDERS: Visit Provider Physician Assistant Surgical
DX: M79.641 Pain in right hand (principal)
CPT/HCPCS: 73130

== ENCOUNTER 2025-04-19 09:37 | Outpatient (CLI) | payer OTHER, SELFPAY ==
--- NOTE | 2025-04-19 09:41 | XR_ITS ---
FINAL REPORT CLINICAL HISTORY: Right Hand Pain Fourth metacarpal fracture March 05, no sx cast off, checking status COMPARISON: 03/29/2025 FINDINGS: Three views of the right hand show a mildly displaced fracture of the fourth metacarpal head. There is minimal volar angulation and displacement. The displacement is stable. Generalized osteopenia is noted. The joint spaces appear normal. IMPRESSION: Stable appearance of distal fourth metacarpal fracture. Reviewed, Interpreted and Dictated by Christophe Ruiz MD Transcribed by Deanna Le Authenticated and [facility]
== END 2025-04-19 23:59 | disposition home or self-care (01) ==
LOC: RAD 09:39
PROVIDERS: Visit Provider Physician Assistant Surgical
DX: S62.304A Unspecified fracture of fourth metacarpal bone, right hand, initial encounter for closed fracture (principal)
CPT/HCPCS: 73130

== ENCOUNTER 2025-05-14 19:44 | Emergency (ER) | payer OTHER, SELFPAY ==
[2025-05-14 19:52] VITALS: BP 122/88; PULSE 60; RESP 16; TEMP 36.9; O2SAT 98; BMI 24.9
--- OUTSIDE RECORDS SUMMARY | 2025-05-14 19:52 | XMS_ITS | Clinical Summary ---
Author Organization Healthcare Address [address] [place] [address] Care Team Providers Care Log Cut Off Sawyer Name Role Phone Tommy Alexandre MD Primary Care Provider + [phone] Allergies Active Allergy Reactions Criticality Noted Date Comments Vit-Iron Carbonyl-Fa Unknown - Patient states they do not know rxn details Low 11/02/2019 Sulfacetamide Unknown - Patient st ates they do not know rxn details Low 02/22/2015 Medications No known medications Active Problems Problem Noted Date Diagnosed Date Atypical squamous cells of u ndetermined significance on cytologic smear of cervix (ASC-US) 11/25/2023 Atypical squamous cells marcio ot exclude high grade squamous intraepithelial lesion on cytologic smear of cervix (ASC-H) 11/25/2023 Low grade squamous intraepit helial lesion on cytologic smear of cervix (LGSIL) 11/25/2023 Cervical high risk human pap illomavirus (HPV) DNA test positive 06/11/2023 Family History Medical History Relation Name Comments Genetic Disorder Brother Relation Name Status Comments Brother Social History Tobacco Use Types Packs/Day Years Used Date Smoking Tobacco: Every Day Smokeless Tobacco: Never Tobacco Cessation:Ready to Q uit: No; Counseling Given: No Alcohol Use Standard Drinks/Week Comments Yes 0 (1 standard drink = 0.6 oz pur e alcohol) PHQ-2 Answer Date Recorded Patient Health Questionnaire-2 Score 0 08/18/2024 Comments No Sex and Gender Information Value Date Recorded Sex Assigned at Not on file Legal Sex Female 7:45 PM EDT Gender Identity Not on file Sexual Orientation Not on file Last Filed Vital Signs Vital Sign Reading Time Taken Comments Blood Pressure 115/77 08/18/2024 9:51 AM EDT Pulse 93 08/18/2024 9:51 AM EDT Temperature 36.8 C (98.2 F) 08/18/2024 9:51 AM EDT Respiratory Rate 14 05/06/2020 11:06 AM EDT Oxygen Saturation 97% 08/18/2024 9:51 AM EDT Inhaled Oxygen Concentration - - Weight 66 kg (145 lb 8.1 oz) 08/18/2024 9:51 AM EDT Height 162.6 cm (5' 4 ) 03/10/2021 8:49 AM EDT Body Mass Index 24.98 03/10/2021 8:49 AM EDT Plan of Treatment Health Maintenance Due Date Last Done Comments [facility]-Infant/Child/Adol SDOH Screenings 1989 [facility]-Varicella Vaccines (1 of 2 - 13+ 2-dose series) 2002 [facility]-DTaP,Tdap,and Td Vaccines (2 - Tdap) 06/18/2004 06/17/2004 HPV Vaccines (1 - 3-dose series) 2004 [facility]- SDOH Screenings 2007 [facility]-Adult SDOH Screenings 2007 [id number] Vaccine ( - season) 2024 [facility]-Influenza Vaccine (Season Ended) 2025 [facility]-Depression Screening 08/18/2025 08/18/2024 [facility]-Pap Smear 11/25/2026 11/25/2023, 04/22/2023, 04/16/2022 [facility]-Cervical Cancer Screening 11/25/2028 [facility]-HPV/Cotest 11/25/2028 11/25/2023, 04/22/2023, 04/16/2022 [facility]-Zoster Vaccines (1 of 2) 2039 [facility]-Hepatitis B Vaccines Completed 001, 06/10/2000, 04/14/2000 [facility]-HIV Screening Completed 11/02/2019 [facility]-Hepatitis C Screening Completed 11/02/2019 [facility]-HIB Vaccines Aged Out No longer e ligible based on patient's age to complete this topic [facility]-Hepatitis A Vaccines Aged Out No longer eligible based on patient's age to complete this topic [facility]-IPV Vaccines Aged Out No longer e ligible based on patient's age to complete this topic [facility]-Pneumococcal Vaccine: Pediatrics (0 to 5 Years) and At-Risk Patients (6 to 49 Years) Aged Out No longer eligible b ased on patient's age to complete this topic [facility]-Rotavirus Vaccines Aged Out No lo nger eligible based on patient's age to complete this topic Procedures Procedure Name Priority Date/Time Associated Diagnosis Comments PAP TEST - CYTOLOGY Routine 11/25/2023 8 :46 AM EST ASCUS with positive high risk HPV cervical HEPATITIS C ANTIBODY W/REFLEX TO HCV QUANT PCR Routine 11/02/2019 4:35 PM EST HIV 1/2 ANTIBODY/ANTIGEN SCREEN WITH REFLEX TO HIV I/II DIFFERENTIATION Routine 11/02/2019 4:35 PM EST from Last 3 Months or Most Recently Relevant to Health Maintenance Results * (ABNORMAL) Pap Test (11/25/2023 8:46 AM EST) Case Report Cytology Case: [id number] Authorizing Provider: Ivan Jerry MD Collected: 11/25/2023 0846 Ordering Location: Obstetrics & Gynecology Received: 11/30/2023 1034 First Screen: Reg Potter Pathologist: Eric Mattson MD Specimen: ThinPrep Pap Test, Liquid-Based Cervical/Vaginal 4 11:50 AM EST [facility] Interpretation LOW GRADE SQUAMOUS INTRAEPITHELIAL LESION WITH ATYPICAL SQUAMOUS CELLS, CANNOT EXCLUDE HIGH GRADE SQUAMOUS INTRAEPITHELIAL LESION (LSIL + ASC-H), SEE COMMENT(A) 4 11:50 AM EST [facility] at 1150 EST Specimen Adequacy Satisfactory for evaluation; endocervical/phillip sformation zone component present. Slide imaged by the ThinPrep Imaging system and selected 22 benitez reviewed then full manual screening. 4 11:50 AM EST [facility] Comment Comment: While a low grade squamous intraepithelial lesion predominates, a high grade squamous intraepithelial lesion cannot be excluded. Management under ASCCP guidelines for ASC-H is suggested, as clinically indicated (www.asccp.org). 4 11:50 AM EST [facility] Cervical cytology is a screening test primarily for squamous cancers and precursors and has associated false negative and positive results. New technologies such as liquid based sampling may decrease but will not eliminate all false negative results. Regular screening and follow-up of unexplained clinical signs and symptoms are recommended to minimize false negative results. Please see the ASCCP website (www.asccp.org)fo r followup recommendations. If HPV testing was requested, correlation with the results is suggested (please call Microbiology at [phone] for results). 4 11:50 AM EST [facility] Menstrual Status Cyclic 12/06/19 2 4 11:50 AM EST [facility] Contraceptive History Not Applicable 4 11:50 AM EST [facility] Screening Type Previous or Suspected Abnormality 4 11:50 AM EST [facility] HPV Testing Requested? Request HPV Testing Regardless of Pap Test Findings 4 11:50 AM EST [facility] Previous Cancer History No 4 11:50 AM EST [facility] Intradepartmental Consultation with Agreement Dr Char Eagle 4 11:50 AM EST [facility] Previous or Suspected Abnormality Previous Abnormal Pap 4 11:50 AM EST [facility] Clinical Information R87.610, R87.810 - ASCUS with positive high risk HPV cervical [ICD-10-CM] 4 11:50 AM EST [facility] Last Menstrual Period 10/28/2023[not having periods 4 11:50 AM EST [facility] Swab Vaginal and cervical cytologic material / Unknown Non-blood Collection / Unknown 11/25/2023 8:46 AM EST 11/30/2023 10:34 AM EST us Ivan Jerry MD LAB CYTOLOGY ORDERABLES Final R esult [facility] [address] [place] [address] * HIV 1 & 2 Antibody/Antigen Screen (11/02/2019 4:35 PM EST) HIV 1 Result NONREACTIVE Screening for HIV 1 and 2 antibodies is NONREACTIVE. No confirmatory testing is required. [facility] 11/02/2019 4:35 PM EST 11/02/2019 6:56 PM EST Ankur Mayfield MD LAB BLOOD ORDERABLES Final Res ult [facility] * Hepatitis C Antibody (11/02/2019 4:35 PM EST) Hepatitis C Antibody NEGATIVE Reference Range: Negative [facility] 11/02/2019 4:35 PM EST 11/02/2019 6:56 PM EST Ankur Mayfield MD LAB BLOOD ORDERABLES Final Res ult [facility] from Last 3 Months or Most Recently Relevant to Health Maintenance Insurance Care Teams Log Cut Off Sawyer Relationship Specialty Start Date End Date Tommy Alexandre MD [address] [place] [address] PCP - General 04/11/21
[2025-05-14 20:00] VITALS: BP 111/64; PULSE 61; O2SAT 96
--- NOTE | 2025-05-14 20:01 | HMH.EDGENADL ---
Discharge Plan Disposition Patient Disposition: Home, Self-Care Prescriptions Prescriptions: No Action ondansetron 8 mg tablet,disintegrating 8 mg PO Q8H PRN (Reason: nausea and vomiting) Qty: 10 0RF hydrocodone-acetaminophen 5-325 mg tablet 1 tab PO Q8H PRN (Reason: pain) Qty: 12 0RF Referrals Follow up/Referrals: Provider,Referral, MD [Primary Care Provider, Medical] - See instructions Activity Restrictions/Add. Instructions Additional Instructions/Restrictions: Stitches to be removed in 10 to 14 days. Do not submerge in any water other than routine soapy bath water for at least 72 hours. If you have any signs of infection including redness, warmth, swelling, pus, return to the emergency department or your family doctor for further evaluation. Clinical Impressions Clinical Impression: Laceration of toe Instructions Patient Instructions: DI for Laceration Repair Print Language Print Language: Estonian Discharge ED Provider: Fred Mathis General Adult HPI General Chief complaint: Wound/Laceration Stated complaint: AO 05/14/25 1800 laceration left little toe Time Seen by Provider: 05/14/25 19:48 Mode of Arrival: Ambulatory Source of Information: Patient Description of Symptoms (Recalled from ER Triage Doc. by RN): Pt cut her toe on a fence History of Present Illness HPI narrative: Please note that above description of symptoms, in this electronic medical record under categorization of recalled from ER triage doctor by RN are reflective of an initial nursing assessment, however, is not reflective of my full history and physical exam that was personally taken and clarified. Consequentially, this preceding description of symptoms, which may include the patient's categorized chief complaint in the EMR, do not reflect my personal clinical impression, and the ultimate description of history of present illness and patient stated complaints should be deferred to this section of the note. Unless stated otherwise or congruent with this section of the note, additional signs, symptoms, or incongruence should be interpreted as inaccurate with my clinical impression. Related Data Previous Rx's ?Medication ?Instructions ?Recorded ondansetron 8 mg disintegrating 8 mg PO Q8H PRN nausea and 02/03/25 tablet vomiting #10 tabs hydrocodone 5 mg-acetaminophen 325 1 tab PO Q8H PRN pain #12 tabs 03/05/25 mg tablet Allergies Allergy/AdvReac Type Severity Reaction Status Date / Time Sulfa (Sulfonamide Allergy Unknown Verified 04/19/25 10:17 Antibiotics) (SULFA (SULFONAMIDE ANTIBIOTICS)) [facility] Disclaimer: The information contained in this section may have been updated after the patient was seen, as this information can be updated by other users. Medical History Depression Anxiety Urinary tract infection Kidney stone Surgical History History of hysterectomy Social History Smoking Status: Never smoker alcohol intake: never substance use type: denies use current occupational status: other Travel in the last 8 weeks?: None household members: children housing: house Have you lived/traveled outside US in past 30 days?: No Contact w/someone who lives/traveled outside US past 30 days?: No Exposure to someone with infectious disease in past 14 days?: No Do you have a fever (greater than 100.4 F or 38 C)?: No Have you tested positive for COVID-19?: No Exposed to someone with COVID-19 in past 14 days?: No Do you have a sore throat?: No Do you have a cough?: No Do you have any weakness?: No Do you have any diarrhea?: No Are you experiencing any unusual bleeding?: No Do you have any muscle aches/pain?: No Do you have any abdominal pain?: No Are you experiencing loss of taste or smell?: No Other Medical History Have you received the Pneumonia Vaccine: No ROS Obtained: Yes All systems reviewed & no additional complaints except as documented Physical Exam General General appearance: alert and in no apparent distress Head Head exam: atraumatic and normocephalic Eye Eye exam: Present normal appearance, PERRL and EOMI Neck Neck exam: Present normal inspection, full ROM and trachea midline Respiratory Respiratory exam: Absent respiratory distress, wheezes, stridor, accessory muscle use or prolonged expiratory phase Cardiovascular Cardiovascular exam: Present other (Pulses equal symmetric in upper and lower extremities) Abdominal Exam Abdominal exam: Present soft; Absent distention, tenderness or pulsatile mass Extremities Exam Extremities exam: Present other (Laceration in the webspace of her 4th and 5th toes on the left foot); Absent edema Neurological Exam Neurological exam: Present alert, oriented X3 and CN II-XII intact; Absent motor sensory deficit Skin Skin exam: Present warm and dry; Absent diaphoresis or erythema Medical Decision Making Medical Records Medical records reviewed: Yes I reviewed the patient's medical records. Screening: Per USPSTF and CDC recommendations, given the prevalence of disease in our region, it is our hospital?s policy to screen for HIV and viral Hepatitis for all patients aged 18 and over and those with ongoing risk factors. Thomas Inquiry Pt receiving controlled substance: No Thomas was queried for this patient: No Vital Signs: 05/14/25 19:52 05/14/25 20:00 Temperature 98.5 F Temperature Source Oral Pulse Rate 61 Pulse Rate [Right Brachial] 60 Respiratory Rate 16 Blood Pressure 111/64 Blood Pressure [Right Arm] 122/88 Blood Pressure Mean [Right Arm] 99 Blood Pressure Source [Right Arm] Automatic Cuff Blood Pressure Position [Right Arm] Sitting 02 Sat by Pulse Oximetry 98 96 Oxygen Delivery Method Room Air Orders (Tests/Meds): ED MEDICATIONS Discontinued Medications Generic Name Dose Route Start Last Admin Trade Name Freq PRN Reason Stop Dose Admin Lidocaine HCl 20 ml 05/14/25 19:52 05/14/25 20:13 Lidocaine 1% 20ml Mdv IJ 05/14/25 19:53 20 ml ONCE ONE Administration Tetanus/Reduced Diphtheria/Acell Pertussis 0.5 ml 05/14/25 19:52 05/14/25 20:13 Tet/Diphth/Pert-Adult 0.5ml Syringe IM 05/14/25 19:53 0.5 ml .ONCE ONE Administration ORDERS Category Date Time Status HIV Combo Routine Lab 05/14/25 19:56 Ordered Hepatitis C Ab Qual. W/ RFX Routine Lab 05/14/25 19:56 Ordered Medical Decision Narrative: 34-year-old female presenting with laceration. She states that she was standing on a chair, chair collapsed, she injured her left little toe getting wrapped in cruz fence. She states that it was bleeding pretty significantly. Held pressure and it was able to stop. No other injury sustained. Able to bear weight. Last tetanus over 10 years ago. That will be updated today. Patient in no acute distress. She has 1-1/2 cm laceration nearly half of the circumference of her left little toe medially at the base of the toe where it connects to the foot. X-rays considered, not deemed necessary. Neurovascularly intact and clean cup. Patient was anesthetized with 1% lidocaine. Given Tdap. Laceration was repaired. Because patient at baseline without signs or symptoms of clinical decompensation, deemed appropriate for discharge. Results were relayed to patient who voiced understanding and were agreeable to outpatient management and follow up. I discussed my clinical impression with patient and answered all questions. At this time, the evidence for any other entities in the differential is insufficient to warrant any further testing or ED observation. This was explained as well. Advisory was given that persistent or worsening symptoms require further evaluation. I confirmed the understanding of this discussion. Continuous Conveyor Screen Drier disclaimer Much of this encounter note is an electronic graphic design intern spoken language to printed text. Electronic graphic design intern of the spoken language may permit errors. Although I have reviewed the note, some errors may still exist. Procedures Laceration Laceration 1: Site: foot Side (If applicable): left Size (cm): 1.5 Description: linear Depth: involves subcutaneous layer Local Anesthetic: lidocaine 1% Amount of anesthesia used (mL): 8 Pre-repair: wound explored, irrigated extensively and deep structures intact Skin layer closed with: nylon Size (cm): 6-0 Number of sutures: 7 Technique: simple, interrupted Critical Care Critical Care Time Critical Care Time: No
[2025-05-14] MEDS: LIDOCAINE 1% 20ML MDV 20 ML IJ (20:13)
[2025-05-14] MEDS: TET/DIPHTH/PERT-ADULT 0.5ML SYRINGE 0.5 ML IM (20:13)
--- NOTE | 2025-05-14 20:16 | PC.NURSE ---
Pt awake alert and oriented Laceration well approximated Bleeding controlled. Skin pink warm and dry Resp full and easy Speech clear and appropriate.
--- NOTE | 2025-05-14 20:21 | PC.NURSE ---
at bedside to repair laceration
[2025-05-14 20:41] VITALS: BP 110/65; PULSE 64; RESP 16; TEMP 36.8; O2SAT 98
== END 2025-05-14 20:45 | disposition home or self-care (01) ==
PROVIDERS: Emergency Provider Emergency Medicine
DX: S91.115A Laceration without foreign body of left lesser toe(s) without damage to nail, initial encounter (principal); W26.8XXA Contact with other sharp object(s), not elsewhere classified, initial encounter; Z23 Encounter for immunization
CPT/HCPCS: 12001; 90471; 90715; 99283; J2003

== ENCOUNTER 2025-05-17 09:57 | Outpatient (CLI) | payer OTHER, SELFPAY ==
--- NOTE | 2025-05-17 10:00 | XR_ITS ---
FINAL REPORT TECHNIQUE: Right hand 3 views CLINICAL HISTORY: right hand fx 4th digit tonya no surgery COMPARISON: 04/19/2025 FINDINGS: RIGHT HAND: 3 images of the right hand were obtained. There is a healing transverse fracture of the distal fourth metacarpal, with associated callus formation. There appears to have been interval healing since the prior exam of 04/19/2025. No new fracture is identified. The joint spaces are intact. There is no soft tissue abnormality identified. IMPRESSION: Healing transverse fracture of the distal fourth metacarpal as described. Reviewed, Interpreted and Dictated by Lazaro Guzman MD Transcribed by Venus Leo Authenticated and [facility]
--- OUTSIDE RECORDS SUMMARY | 2025-05-17 10:01 | XMS_ITS | Clinical Summary ---
Author Organization Healthcare Address [address] [place] [address] Care Team Providers Care Accounts Adjustable Clerk Name Role Phone Tommy Alexandre MD Primary Care Provider + [phone] Allergies Active Allergy Reactions Criticality Noted Date [...] SDOH Screenings 2007 [facility]-Adult SDOH Screenings 2007 [id number] Vaccine ( - season) 2024 [facility]-Influenza Vaccine [...] 8:46 AM EST) Case Report Cytology Case: [id number] Authorizing Provider: Ivan Jerry MD Collected: 11/25/2023 0846 Ordering Location: Obstetrics & Gynecology Received: 11/30/2023 1034 First Screen: Reg Potter Pathologist: Eric Mattson MD Specimen: ThinPrep Pap Test, Liquid-Based Cervical/Vaginal 4 11:50 AM EST [facility] Interpretation LOW GRADE SQUAMOUS INTRAEPITHELIAL LESION WITH ATYPICAL SQUAMOUS CELLS, CANNOT EXCLUDE HIGH GRADE SQUAMOUS INTRAEPITHELIAL LESION (LSIL + ASC-H), SEE COMMENT(A) 4 11:50 AM EST [facility] at 1150 EST Specimen Adequacy Satisfactory for evaluation; endocervical/phillip sformation zone component present. Slide imaged by the ThinPrep Imaging system and selected 22 benitez reviewed then full manual screening. 4 11:50 AM EST [facility] Comment Comment: While a low grade squamous intraepithelial lesion predominates, a high grade squamous intraepithelial lesion cannot be excluded. Management under ASCCP guidelines for ASC-H is suggested, as clinically indicated (www.asccp.org). 4 11:50 AM EST [facility] Cervical cytology is a screening test [...] results is suggested (please call Microbiology at [phone] for results). 4 11:50 AM EST [facility] Menstrual Status Cyclic 12/06/19 2 4 11:50 AM EST [facility] Contraceptive History Not Applicable 4 11:50 AM EST [facility] Screening Type Previous or Suspected Abnormality 4 11:50 AM EST [facility] HPV Testing Requested? Request HPV Testing Regardless of Pap Test Findings 4 11:50 AM EST [facility] Previous Cancer History No 4 11:50 AM EST [facility] Intradepartmental Consultation with Agreement Dr Char Eagle 4 11:50 AM EST [facility] Previous or Suspected Abnormality Previous Abnormal Pap 4 11:50 AM EST [facility] Clinical Information R87.610, R87.810 - ASCUS with positive high risk HPV cervical [ICD-10-CM] 4 11:50 AM EST [facility] Last Menstrual Period 10/28/2023[not having periods 4 11:50 AM EST [facility] Swab Vaginal and cervical cytologic material / Unknown Non-blood Collection / Unknown 11/25/2023 8:46 AM EST 11/30/2023 10:34 AM EST us Ivan Jerry MD LAB CYTOLOGY ORDERABLES Final R esult [facility] [address] [place] [address] * HIV 1 & 2 Antibody/Antigen Screen [...] Relevant to Health Maintenance Insurance Care Teams Accounts Adjustable Clerk Relationship Specialty Start Date End Date Tommy Alexandre MD [address] [place] [address] PCP - General 04/11/21
== END 2025-05-17 23:59 | disposition home or self-care (01) ==
LOC: RAD 09:58
PROVIDERS: Visit Provider Physician Assistant Surgical
DX: S62.394D Other fracture of fourth metacarpal bone, right hand, subsequent encounter for fracture with routine healing (principal)
CPT/HCPCS: 73130

== ENCOUNTER 2025-09-21 09:33 | Outpatient (CLI) | payer OTHER, SELFPAY ==
[2025-09-21 14:53] LABS: Coronavirus 19, PCR Not Detected (NotDetected); Influenza A, PCR Not Detected (NotDetected); Influenza B, PCR Not Detected (NotDetected)
--- OUTSIDE RECORDS SUMMARY | 2025-09-24 09:47 | XMS_ITS | Clinical Summary ---
Author Organization Healthcare Address [address] [place] [address] Care Team Providers Care Refrigerator Cabinetmaker Name Role Phone Tommy Alexandre MD Primary Care Provider + [phone] Allergies Active Allergy Reactions Criticality Noted Date [...] Health Maintenance Due Date Last Done Comments [facility]-/Child/Adol SDOH Screenings 1989 [facility]-Varicella Vaccines (1 of 2 - 13+ 2-dose series) 2002 [facility]-DTaP,Tdap,and Td Vaccines (2 - Tdap) 06/18/2004 06/17/2004 [facility]- SDOH Screenings 2007 [facility]-Adult SDOH Screenings 2007 HPV Vaccines (1 - 3-dose SCDM series) 2016 AEP-THNBP-31 Vaccine ( - season) 2025 [facility]-Influenza Vaccine (#1) 2025 [facility]-Depression Screening 08/18/2025 08/18/2024 [facility]-Pap Smear 11/25/2026 11/25/2023, 03/30, 04/16/2022 [facility]-Cervical Cancer Screening 11/25/2028 [facility]-HPV/Cotest 11/25/2028 11/25/2023, 03/30, 04/22/2023, Additional history exists [facility]-Zoster Vaccines (1 of 2) 2039 [facility]-Hepatitis [...] 49 Years) Aged Out No longer eligible based on [...] 8:46 AM EST) Case Report Cytology Case: [id number] Authorizing Provider: Ivan Jerry MD Collected: 11/25/2023 0846 Ordering Location: Obstetrics & Gynecology Received: 11/30/2023 1034 First Screen: Reg Potter Pathologist: Eric Mattson MD Specimen: ThinPrep Pap Test, Liquid-Based Cervical/Vaginal 4 11:50 AM EST [facility] Interpretation LOW GRADE SQUAMOUS INTRAEPITHELIAL LESION WITH ATYPICAL SQUAMOUS CELLS, CANNOT EXCLUDE HIGH GRADE SQUAMOUS INTRAEPITHELIAL LESION (LSIL + ASC-H), SEE COMMENT(A) 4 11:50 AM EST [facility] at 1150 EST Specimen Adequacy Satisfactory for evaluation; endocervical/phillip sformation zone component present. Slide imaged by the ThinPrep Imaging system and selected 22 benitez reviewed then full manual screening. 4 11:50 AM EST [facility] Comment Comment: While a low grade squamous intraepithelial lesion predominates, a high grade squamous intraepithelial lesion cannot be excluded. Management under ASCCP guidelines for ASC-H is suggested, as clinically indicated (www.asccp.org). 4 11:50 AM EST [facility] Cervical cytology is a screening [...] results is suggested (please call Microbiology at [phone] for results). 4 11:50 AM EST [facility] Menstrual Status Cyclic 12/06/19 2 4 11:50 AM EST [facility] Contraceptive History Not Applicable 4 11:50 AM EST [facility] Screening Type Previous or Suspected Abnormality 4 11:50 AM EST [facility] HPV Testing Requested? Request HPV Testing Regardless of Pap Test Findings 4 11:50 AM EST [facility] Previous Cancer History No 4 11:50 AM EST [facility] Intradepartmental Consultation with Agreement Dr Char Eagle 4 11:50 AM EST [facility] Previous or Suspected Abnormality Previous Abnormal Pap 4 11:50 AM EST [facility] Clinical Information R87.610, R87.810 - ASCUS with positive high risk HPV cervical [ICD-10-CM] 4 11:50 AM EST [facility] Last Menstrual Period 10/28/2023[not having periods 4 11:50 AM EST [facility] Swab Vaginal and cervical cytologic material / Unknown Non-blood Collection / Unknown 11/25/2023 8:46 AM EST 11/30/2023 10:34 AM EST us Ivan Jerry MD LAB CYTOLOGY ORDERABLES Final R esult [facility] [address] [place] [address] * HIV 1 & 2 Antibody/Antigen Screen (11/02/2019 4:35 PM EST) HIV 1 Result NONREACTIVE Screening for HIV 1 and 2 antibodies is NONREACTIVE. No confirmatory testing is required. [facility] 11/02/2019 4:35 PM EST 11/02/2019 6:56 PM EST Ankur Mayfield MD LAB BLOOD ORDERABLES Final Res ult Performing Organization Address City/[facility]/ZIP Co de Phone Number SUNQUEST * Hepatitis C Antibody (11/02/2019 4:35 PM EST) Hepatitis C Antibody NEGATIVE Reference Range: Negative [facility] 11/02/2019 4:35 PM EST 11/02/2019 6:56 PM EST Ankur Mayfield MD LAB BLOOD ORDERABLES Final Res ult Performing Organization Address City/[facility] Co de Phone Number SUNQUEST from Last 3 Months or Most Recently Relevant to Health Maintenance Insurance Care Teams Refrigerator Cabinetmaker Relationship Specialty Start Date End Date Tommy Alexandre MD [address] [place] [address] PCP - General 04/11/21
== END 2025-09-21 23:59 ==
LOC: LAB.DROPOF 09-24 09:33
PROVIDERS: Visit Provider Nurse Practitioner
DX: J06.9 Acute upper respiratory infection, unspecified (principal); J02.9 Acute pharyngitis, unspecified
CPT/HCPCS: 87631